=== PATIENT | male | born 1940 | race Caucasian/White ===

== ENCOUNTER 2018-07-10 09:15 | Inpatient (IN) | payer MEDICARE, OTHER ==
[2018-07-11] MEDS ORDERED: Magnesium Hydroxide 400 MG/5 ML Susp 30 ML Cup PO PRN (11:50)
[2018-07-11] MEDS ORDERED: Albuterol/Ipratropium 3.0-0.5 MG/3 ML Neb Soln NEB PRN (11:50)
[2018-07-11] MEDS ORDERED: Acetaminophen 325 MG Tab PO PRN (11:50)
[2018-07-11] MEDS: Albuterol/Ipratropium 3.0-0.5 MG/3 ML Neb Soln NEB SCH ×2 (14:53→22:12)
[2018-07-11] MEDS: Furosemide 20 MG Tab PO SCH (16:25)
[2018-07-11] MEDS: Melatonin 3 MG Tab PO SCH (20:11)
[2018-07-11] MEDS: Carvedilol 25 MG Tab PO SCH (20:12)
[2018-07-11] MEDS: Simvastatin 10 MG Tab PO SCH (20:12)
[2018-07-11] MEDS: Warfarin 2.5 MG Tab PO SCH (20:12)
[2018-07-11] MEDS: Insulin Glargine,Human Rec. Analog 100 Units/ML 3 ML Pen SUBCUT SCH (20:12)
[2018-07-11] MEDS: Fluticasone Propionate Nasal Spray 16 GM Bottle NASBOTH SCH (20:13)
[2018-07-12] MEDS: Albuterol/Ipratropium 3.0-0.5 MG/3 ML Neb Soln NEB SCH ×3 (06:00→22:12)
[2018-07-12] MEDS: Levothyroxine 50 MCG Tab PO SCH (06:01)
[2018-07-12] MEDS: Carvedilol 25 MG Tab PO SCH ×2 (09:38→19:38)
[2018-07-12] MEDS: PARoxetine 20 MG Tab PO SCH (09:38)
[2018-07-12] MEDS: Furosemide 20 MG Tab PO SCH ×2 (09:39→15:14)
[2018-07-12] MEDS: Levofloxacin 500 MG Tab PO SCH (09:39)
[2018-07-12] MEDS: Digoxin 250 MCG Tab PO SCH (09:39)
[2018-07-12] MEDS: Fluticasone Propionate Nasal Spray 16 GM Bottle NASBOTH SCH ×2 (09:39→19:40)
[2018-07-12] MEDS: Warfarin 2.5 MG Tab PO SCH (19:38)
[2018-07-12] MEDS: Melatonin 3 MG Tab PO SCH (19:39)
[2018-07-12] MEDS: Simvastatin 10 MG Tab PO SCH (19:39)
[2018-07-12] MEDS: Insulin Glargine,Human Rec. Analog 100 Units/ML 3 ML Pen SUBCUT SCH (19:39)
[2018-07-13] MEDS: Levothyroxine 50 MCG Tab PO SCH (06:08)
[2018-07-13] MEDS: Albuterol/Ipratropium 3.0-0.5 MG/3 ML Neb Soln NEB SCH ×3 (06:08→22:35)
[2018-07-13] MEDS: Carvedilol 25 MG Tab PO SCH ×2 (07:28→19:33)
[2018-07-13] MEDS: Fluticasone Propionate Nasal Spray 16 GM Bottle NASBOTH SCH ×2 (07:28→19:35)
[2018-07-13] MEDS: Furosemide 20 MG Tab PO SCH ×2 (07:28→15:04)
[2018-07-13] MEDS: Digoxin 250 MCG Tab PO SCH (07:28)
[2018-07-13] MEDS: PARoxetine 20 MG Tab PO SCH (07:28)
[2018-07-13] MEDS: Levofloxacin 500 MG Tab PO SCH (10:31)
[2018-07-13] MEDS: Warfarin 2.5 MG Tab PO SCH (19:34)
[2018-07-13] MEDS: Melatonin 3 MG Tab PO SCH (19:34)
[2018-07-13] MEDS: Simvastatin 10 MG Tab PO SCH (19:34)
[2018-07-13] MEDS: Insulin Glargine,Human Rec. Analog 100 Units/ML 3 ML Pen SUBCUT SCH (19:35)
[2018-07-14] MEDS: Levothyroxine 50 MCG Tab PO SCH (06:15)
[2018-07-14 07:00] LABS: ANION GAP 10.8 mmol/L (10-20)
[2018-07-14] MEDS: Albuterol/Ipratropium 3.0-0.5 MG/3 ML Neb Soln NEB SCH ×3 (07:15→23:38)
[2018-07-14] MEDS: Digoxin 250 MCG Tab PO SCH (09:09)
[2018-07-14] MEDS: Levofloxacin 500 MG Tab PO SCH (09:09)
[2018-07-14] MEDS: PARoxetine 20 MG Tab PO SCH (09:09)
[2018-07-14] MEDS: Carvedilol 25 MG Tab PO SCH ×2 (09:10→20:55)
[2018-07-14] MEDS: Furosemide 20 MG Tab PO SCH ×2 (09:10→17:14)
[2018-07-14] MEDS: Fluticasone Propionate Nasal Spray 16 GM Bottle NASBOTH SCH ×2 (09:10→20:53)
[2018-07-14] MEDS ORDERED: Albuterol/Ipratropium 3.0-0.5 MG/3 ML Neb Soln NEB PRN (17:40)
[2018-07-14] MEDS: Insulin Glargine,Human Rec. Analog 100 Units/ML 3 ML Pen SUBCUT SCH (20:54)
[2018-07-14] MEDS: Melatonin 3 MG Tab PO SCH (20:55)
[2018-07-14] MEDS: Simvastatin 10 MG Tab PO SCH (20:56)
[2018-07-14] MEDS: Warfarin 2.5 MG Tab PO SCH (20:56)
[2018-07-15] MEDS: Levothyroxine 50 MCG Tab PO SCH (06:00)
[2018-07-15] MEDS: Albuterol/Ipratropium 3.0-0.5 MG/3 ML Neb Soln NEB SCH (07:08)
[2018-07-15] MEDS: Carvedilol 25 MG Tab PO SCH (08:03)
[2018-07-15] MEDS: PARoxetine 20 MG Tab PO SCH (08:04)
[2018-07-15] MEDS: Digoxin 250 MCG Tab PO SCH (08:04)
[2018-07-15] MEDS: Furosemide 20 MG Tab PO SCH (08:04)
[2018-07-15] MEDS: Fluticasone Propionate Nasal Spray 16 GM Bottle NASBOTH SCH (08:04)
[2018-07-15] MEDS ORDERED: Calcium Carbonate 750 MG Tab.Chew PO PRN (08:48)
[2018-07-15] MEDS: Levofloxacin 500 MG Tab PO SCH (09:14)
--- NOTE | 2018-07-16 03:27 | DISCH ---
SWING BED DISCHARGE PRIMARY DISCHARGE DIAGNOSES: 1. Recurrent pneumonia with a chronic obstructive pulmonary disease exacerbation. 2. Escherichia coli urinary tract infection complicated due to neurogenic bladder. 3. Acute on chronic renal failure, improved with IV fluids. His creatinine was 1.6 on discharge, which is near his baseline. 4. Chronic anemia. Hemoglobin 9.8 on discharge. 5. [id number] myocardial infarction, on medical management on his admission. 6. Fall with small hematoma on the left flank area, not expanding during his stay. 7. Chronic diastolic heart failure, improved with restarting Lasix. 8. Essential hypertension. Blood pressures are under good control. Losartan remains on hold. 9. Sleep apnea, on CPAP. 10.Neurogenic bladder. 11.Mild thrombocytopenia. His platelets were actually normalized on discharge. REASON FOR ADMISSION: On the date of admission, this 78-year-old male who previously had a prolonged hospital stay for bilateral pneumonia and then swing bed had been discharged home. He returned to the clinic. He was having some chest discomfort, some cough, trouble breathing like he was before. He was getting weak. He fell at home. He had a troponin up to 0.6. It improved down to 0.056. He was monitored with telemetry. He had a paced rhythm. Otherwise, he was given some IV fluid resuscitation initially and creatinine which was over 2 did come down. His Lasix was restarted and he started oxygenating better. He was weaned off oxygen. He was on scheduled nebulizers and he previously had not used them at home, so he was discharged with recommendations to use nebulizers. He is up working with therapies and felt to be stable for discharge. DISCHARGE PLANS AND INSTRUCTIONS: The patient is going home with Home Health. He will follow up with Dr. Schrader in the clinic in 7-14 days' time. He will have a followup lab work, BMP, CBC, and INR on that same date. He did have a discharging INR today of 2.1. He will continue with his home dose, which is 2.5 daily and 5 mg on Mondays and Fridays. He otherwise is not on any aspirin due to him being on Coumadin and he already takes a beta-mary anne of Coreg and is on a statin for heart medications. He was not having any chest pain, and I did not elect to discharge him on nitro as he has not had any further chest pain. Losartan will still be on hold. Lasix will be 20 mg twice daily. He will continue his CPAP at home. He will take Levaquin for 1 more dose tomorrow. Otherwise, addendum to Home Health. He was seen [id number] on 07/15/2018. Primary need for Home Health is teaching of new medications including inhalers and a new [id number] WA and monitoring for signs and symptoms of heart failure. Due to his lung problems, he requires taxing effort to leave his home. He otherwise would benefit from some PT for mobility and home safety. I will periodically review this plan of care. PHYSICAL EXAMINATION: Vital Signs: His discharging vitals include a temperature 99, his weight 86.1 kg, pulse 70, blood pressure 134/64, respiratory rate 18, O2 of 95% on room air. General: He is in no acute distress. Heart: Regular rate and rhythm. Lungs: Sounds are clear to auscultation bilaterally without crackles or wheezes. Abdomen: Has positive bowel sounds. Soft, nontender. Extremities: Warm and dry. No edema. Mental status: Alert and orientated x3. MKA: 07/15/2018 17:40:46 MODL: 07/16/2018 03:20:55 /[id number]
== END 2018-07-15 13:00 | disposition home health service (06) | DRG 193 ==
LOC: VM.MS 07-11 11:13
PROVIDERS: ADMIT Internal Medicine; ATTEND Internal Medicine
DX: J18.9 Pneumonia, unspecified organism (principal); I21.4 Non-ST elevation (NSTEMI) myocardial infarction; N39.0 Urinary tract infection, site not specified; I13.0 Hypertensive heart and chronic kidney disease with heart failure and stage 1 through stage 4 chronic kidney disease, or unspecified chronic kidney disease; I50.32 Chronic diastolic (congestive) heart failure; J44.0 Chronic obstructive pulmonary disease with (acute) lower respiratory infection; J44.1 Chronic obstructive pulmonary disease with (acute) exacerbation; B96.20 Unspecified Escherichia coli [E. coli] as the cause of diseases classified elsewhere; N18.9 Chronic kidney disease, unspecified; D63.8 Anemia in other chronic diseases classified elsewhere; S30.1XXA Contusion of abdominal wall, initial encounter; W19.XXXA Unspecified fall, initial encounter; G47.30 Sleep apnea, unspecified; N31.9 Neuromuscular dysfunction of bladder, unspecified; I25.10 Atherosclerotic heart disease of native coronary artery without angina pectoris; D69.6 Thrombocytopenia, unspecified; Z87.01 Personal history of pneumonia (recurrent); Z79.01 Long term (current) use of anticoagulants; Z79.899 Other long term (current) drug therapy
CPT/HCPCS: 36415; 80048; 82962; 85025; 85610; 94640; 97110-GP; 97116-GP; 97165-GO; 97530-GP; A9270-GY; J7620-GY

== ENCOUNTER 2019-04-04 15:50 | Inpatient (IN) | payer MEDICARE, OTHER ==
[2019-04-04] MEDS ORDERED: Sodium Chloride 0.9% 10 ML Syringe FLUSH PRN (16:03)
[2019-04-04] MEDS ORDERED: cefTRIAXone 1 GM Vial IVPUSH ONE (16:03)
[2019-04-04] MEDS ORDERED: Albuterol/Ipratropium 3.0-0.5 MG/3 ML Neb Soln NEB ONE (16:06)
[2019-04-04] MEDS ORDERED: Sodium Chloride 0.9% 1,000 ML IV ONE (16:09)
--- NOTE | 2019-04-04 16:13 | EDM.PDOC ---
ED HPI GENERAL MEDICAL PROBLEM - General Chief Complaint: General Stated Complaint: shortness of breath Time Seen by Provider: 04/04/19 15:55 Source of Information: Reports: Patient History Limitations: Reports: Respiratory Distress - History of Present Illness INITIAL COMMENTS - FREE TEXT/NARRATIVE: Patient comes into the emergency department with complaint of shortness of breath, cough, and fever. Patient states his symptoms started approximately 3-4 days ago with generalized body aches, cough, and fever. Over the course of the last 3 days he has also noticed an increase in shortness of breath. He denies having issue with his respiratory system prior to this and is not on home O2. He was unable to catch his breath at home today and was extremely weak. His friend brought him to the emergency department for further evaluation of the above concerns. Prior to this the patient states he's been well. He denies any chest pain, dizziness, lightheadedness, nausea, vomiting, or lower extremity edema. Patient states it is difficult to take a deep breath without coughing. Patient denies taking any medications prior to arrival related to his illness. Patient denies any interventions making his symptoms less severe or any interventions that make his symptoms more severe. Onset: Gradual Location: Reports: Generalized Quality: Reports: Dull Severity: Moderate Improves with: Reports: None Worsens with: Reports: None Associated Symptoms: Reports: cough w sputum (blood tinge noted in sputum ), Diaphoresis, Fever/Chills, Loss of Appetite, Malaise, Shortness of Breath - Related Data Allergies Allergy/AdvReac Type Severity Reaction Status Date / Time No Known Allergies Allergy Verified 04/04/19 17:02 Home Meds: Home Meds Carvedilol [Coreg] 25 mg PO BID 07/29/13 [History] Digoxin 0.25 mg PO DAILY 07/29/13 [History] Levothyroxine [Synthroid] 50 mcg PO DAILY 07/29/13 [History] [place]-3 Fatty Acids [[place]-3] 1,000 mg PO BID 07/29/13 [History] PARoxetine [Paxil] 20 mg PO DAILY 07/29/13 [History] Simvastatin [Zocor] 5 mg PO BEDTIME 07/29/13 [History] Fluticasone Propionate [Flonase] 2 sprays NASBOTH BID 06/05/18 [History] Melatonin 6 mg PO BEDTIME 06/05/18 [History] Albuterol/Ipratropium [DuoNeb 3.0-0.5 MG/3 ML] 3 ml NEB Q4HRRT PRN #30 neb 06/17 [Rx] Insulin Glarg,Human.Rec.Analog [Lantus Solostar] 5 units SUBCUT BEDTIME #1 pen 06/17/18 [Rx] Acetaminophen [Tylenol] 650 mg PO Q6H PRN 07/10/18 [History] Sennosides/Docusate Sodium [Senna Plus Tablet] 1 tab PO BID 07/10/18 [History] Albuterol/Ipratropium [DuoNeb 3.0-0.5 MG/3 ML] 3 ml NEB QIDACANDBED PRN #30 neb 07/15/18 [Rx] Furosemide [Lasix] 20 mg PO BIDDIURETIC #60 tablet 07/15/18 [Rx] Warfarin [Coumadin] 2.5 mg PO BEDTIME #0 07/15/18 [Rx] levoFLOXacin [Levaquin] 500 mg PO DAILY@1000 #1 tablet 07/15/18 [Rx] Past Medical History HEENT History: Reports: Allergic Rhinitis Cardiovascular History: Reports: Afib, CAD, Heart Failure, High Cholesterol, Hypertension Respiratory History: Reports: Sleep Apnea, SOB Gastrointestinal History: Reports: GERD, Other (See Below) Other Gastrointestinal History: inguinal hernia Genitourinary History: Reports: Diabetic Nephropathy, Neurogenic Bladder, Other (See Below) Other Genitourinary History: Urethral stricture Musculoskeletal History: Reports: Back Pain, Chronic, Osteoarthritis Other Musculoskeletal History: DJD. Lumbar degenerative disc disease. HX of polio. Right knee pain States R knee buckled Psychiatric History: Reports: Depression Endocrine/Metabolic History: Reports: Diabetes, Type II, Hypothyroidism, Obesity /BMI 30+ Hematologic History: Reports: Blood Transfusion(s) Oncologic (Cancer) History: Reports: None - Past Surgical History Cardiovascular Surgical History: Reports: Pacer Musculoskeletal Surgical History: Reports: Knee Replacement Social & Family History - Family History Family Medical History: Noncontributory Cardiac: Reports: RI Endocrine/Metabolic: Reports: Diabetes, type II - Caffeine Use Caffeine Use: Reports: Coffee - Living Situation & Occupation Living situation: Reports: , Alone 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 Constitutional: Reports: Fever, Chills, Malaise, Weakness, Fatigue, Diaphoresis , Decreased Appetite HEENT: Denies: Ear Discharge, Ear Pain, Rhinitis Respiratory: Reports: Shortness of Breath, Wheezing, Cough, Sputum Cardiovascular: Reports: Dyspnea on Exertion, Other (paced rhythm ) Endocrine: Reports: No Symptoms GI/Abdominal: Reports: No Symptoms : Reports: No Symptoms Musculoskeletal: Reports: No Symptoms Skin: Reports: No Symptoms Neurological: Reports: No Symptoms Psychiatric: Reports: No Symptoms Hematologic/Lymphatic: Reports: No Symptoms ED EXAM, GENERAL - Physical Exam Exam: See Below Exam Limited By: No Limitations General Appearance: Moderate Distress Respiratory/Chest: Decreased Breath Sounds, Crackles, Wheezing, Stridor, Accessory Muscle Use Cardiovascular: Normal Peripheral Pulses, No Gallop, Other (paced rhythm ). No : No Edema GI/Abdominal: Normal Bowel Sounds, Soft, Non-Tender, No Distention Back Exam: Normal Inspection, Full Range of Motion Extremities: Normal Inspection, Normal Range of Motion, Non-Tender, No Pedal Edema, Normal Capillary Refill Neurological: Alert, Oriented Psychiatric: Normal Affect, Normal Mood Skin Exam: Intact, Increased Warmth, Pallor Course - Vital Signs Last Recorded V/S: Last Vital Signs Temp 38.9 C H 04/04/19 16:50 Pulse 70 04/04/19 16:14 Resp 40 H 04/04/19 15:57 BP 175/79 H 04/04/19 15:57 Pulse Ox 90 L 04/04/19 16:14 - Orders/Labs/Meds Orders: Active Orders 24 hr Category Date Time Status Admission Status [Patient Status] [ADT] Routine ADT 04/04/19 17:17 Ordered EKG Documentation Completion [RC] STAT Care 04/04/19 16:03 Active RT Aerosol Therapy [RC] ASDIRECTED Care 04/04/19 16:06 Active CULTURE BLOOD [BC] Stat Lab 04/04/19 16:28 Results CULTURE BLOOD [BC] Stat Lab 04/04/19 16:35 Received Sodium Chloride 0.9% [Normal Saline] 1,000 ml Med 04/04/19 16:09 Active IV ONETIME Sodium Chloride 0.9% [Saline Flush] Med 04/04/19 16:03 Active 10 ml FLUSH ASDIRECTED PRN Blood Culture x2 Reflex Set [OM.PC] Stat Oth 04/04/19 16:03 Ordered Peripheral IV Insertion Adult [OM.PC] Stat Oth 04/04/19 16:03 Ordered Medication Orders Sodium Chloride (Normal Saline) 1,000 mls @ 150 mls/hr IV ONETIME ONE Stop: 04/04/19 22:48 Last Admin: 04/04/19 16:32 Dose: 150 mls/hr Sodium Chloride (Saline Flush) 10 ml FLUSH ASDIRECTED PRN PRN Reason: Keep Vein Open Labs: Laboratory Tests 04/04/19 04/04/19 04/04/19 Range/Units 16:28 16:28 16:28 WBC 5.1 (4.0-10.0) x10^3/uL RBC 3.83 L (4.5-6.0) x10^6/uL Hgb 11.8 L D (14.0-18.0) g/dL Hct 37.1 L (40.0-52.0) % MCV 96.9 H (78.0-93.0) fL MCH 30.8 (26.0-32.0) pg MCHC 31.8 L (32.0-36.0) g/dL RDW Coeff of Mart 14.4 (10.0-15.0) % Plt Count 82 L D (130-400) x10^3/uL Neut % (Auto) 49.5 L (50.0-80.0) % Lymph % (Auto) 17.6 L (25.0-50.0) % [place] % (Auto) 30.5 H (2.0-11.0) % Eos % (Auto) 1.2 (0.0-4.0) % Baso % (Auto) 1.2 (0.2-1.2) % PT (10.0-12.8) SEC INR (2.0-3.5) Sodium 138 (69-191) mmol/L Potassium 4.4 (1.5-9.9) mmol/L Chloride 101 (54-184) mmol/L Carbon Dioxide 28 (21-32) mmol/L Anion Gap 13.4 (10-20) mmol/L BUN 22 H (7-18) mg/dL Creatinine 1.9 H (0.70-1.30) mg/dL Est Cr Clr Drug Dosing 28.45 mL/min Estimated GFR (MDRD) 34 Glucose 134 H (74-106) mg/dL Lactic Acid 1.1 (0.4-2.0) mmol/L Calcium 8.4 L (8.5-10.1) mg/dL Corrected Calcium 8.96 (8.5-10.1) mg/dL Total Bilirubin 1.0 (0.2-1.0) mg/dL AST 21 (15-37) U/L ALT 17 (16-63) U/L Alkaline Phosphatase 82 (46-116) U/L NT-Pro-B Natriuret Pep 4423 H (<=450) pg/mL Total Protein 7.5 (6.4-8.2) g/dL Albumin 3.3 L (3.4-5.0) g/dL Globulin 4.2 Albumin/Globulin Ratio 0.79 09/28/19 Range/Units 16:28 WBC (4.0-10.0) x10^3/uL RBC (4.5-6.0) x10^6/uL Hgb (14.0-18.0) g/dL Hct (40.0-52.0) % MCV (78.0-93.0) fL MCH (26.0-32.0) pg MCHC (32.0-36.0) g/dL RDW Coeff of Mart (10.0-15.0) % Plt Count (130-400) x10^3/uL Neut % (Auto) (50.0-80.0) % Lymph % (Auto) (25.0-50.0) % [place] % (Auto) (2.0-11.0) % Eos % (Auto) (0.0-4.0) % Baso % (Auto) (0.2-1.2) % PT 21.4 H (10.0-12.8) SEC INR 1.9 L (2.0-3.5) Sodium (69-191) mmol/L Potassium (1.5-9.9) mmol/L Chloride (54-184) mmol/L Carbon Dioxide (21-32) mmol/L Anion Gap (10-20) mmol/L BUN (7-18) mg/dL Creatinine (0.70-1.30) mg/dL Est Cr Clr Drug Dosing mL/min Estimated GFR (MDRD) Glucose (74-106) mg/dL Lactic Acid (0.4-2.0) mmol/L Calcium (8.5-10.1) mg/dL Corrected Calcium (8.5-10.1) mg/dL Total Bilirubin (0.2-1.0) mg/dL AST (15-37) U/L ALT (16-63) U/L Alkaline Phosphatase (46-116) U/L NT-Pro-B Natriuret Pep (<=450) pg/mL Total Protein (6.4-8.2) g/dL Albumin (3.4-5.0) g/dL Globulin Albumin/Globulin Ratio Meds: Medications Generic Name Dose Route Start Last Admin Trade Name Freq PRN Reason Stop Dose Admin Sodium Chloride 1,000 mls @ 150 mls/hr 04/04/19 16:09 04/04/19 16:32 Normal Saline IV 04/04/19 22:48 150 mls/hr ONETIME ONE Administration Sodium Chloride 10 ml 04/04/19 16:03 Saline Flush FLUSH ASDIRECTED PRN Keep Vein Open Discontinued Medications Generic Name Dose Route Start Last Admin Trade Name Freq PRN Reason Stop Dose Admin Acetaminophen 1,000 mg 04/04/19 16:40 04/04/19 16:50 Tylenol PO 04/04/19 16:41 Not Given NOW ONE Acetaminophen 1,000 mg 04/04/19 16:46 04/04/19 16:50 Tylenol Extra Strength PO 04/04/19 16:47 1,000 mg ONETIME ONE Administration Albuterol/Ipratropium 3 ml 04/04/19 16:06 04/04/19 16:14 Duoneb 3.0-0.5 Mg/3 Ml NEB 04/04/19 16:07 3 ml ONETIME ONE Administration Ceftriaxone Sodium 1 gm 04/04/19 16:03 04/04/19 16:28 Rocephin IVPUSH 04/04/19 16:04 1 gm ONETIME ONE Administration Furosemide 40 mg 04/04/19 17:15 Lasix IV 04/04/19 17:16 ONETIME ONE Departure - Departure Time of Disposition: 17:20 Disposition: Admitted As Inpatient 65 Clinical Impression: CHF (congestive heart failure) Qualifiers: Heart failure type: diastolic Heart failure chronicity: acute Qualified Code(s) : I50.31 - Acute diastolic (congestive) heart failure Fever Qualifiers: Fever type: unspecified Qualified Code(s): R50.9 - Fever, unspecified Respiratory failure Qualifiers: Chronicity: acute Respiratory failure complication: hypoxia and hypercapnia Qualified Code(s): J96.01 - Acute respiratory failure with hypoxia; J96.02 - Acute respiratory failure with hypercapnia Fluid overload Qualifiers: Hypervolemia type: unspecified Qualified Code(s): E87.70 - Fluid overload, unspecified - Discharge Information *PRESCRIPTION DRUG MONITORING PROGRAM REVIEWED*: Not Applicable *COPY OF PRESCRIPTION DRUG MONITORING REPORT IN PATIENT MARTY: Not Applicable Forms: ED Department Discharge - Problem List & Annotations (1) Acute diastolic heart failure SNOMED Code(s): 388354018 Code(s): I50.31 - ACUTE DIASTOLIC (CONGESTIVE) HEART FAILURE Status: Chronic Current Visit: No (2) CHF (congestive heart failure) SNOMED Code(s): 02837638 Code(s): I50.9 - HEART FAILURE, UNSPECIFIED Status: Chronic Priority: Medium Current Visit: Yes Qualifiers: Heart failure type: diastolic Heart failure chronicity: acute Qualified Code(s): I50.31 - Acute diastolic (congestive) heart failure (3) Fever SNOMED Code(s): 019714722 Code(s): R50.9 - FEVER, UNSPECIFIED Status: Acute Current Visit: Yes Qualifiers: Fever type: unspecified Qualified Code(s): R50.9 - Fever, unspecified (4) Fluid overload SNOMED Code(s): 50782396 Code(s): E87.70 - FLUID OVERLOAD, UNSPECIFIED Status: Acute Current Visit : Yes Qualifiers: Hypervolemia type: unspecified Qualified Code(s): E87.70 - Fluid overload, unspecified (5) Respiratory failure SNOMED Code(s): 615754219 Code(s): J96.90 - RESPIRATORY FAILURE, UNSP, UNSP W HYPOXIA OR HYPERCAPNIA Status: Acute Current Visit: Yes Qualifiers: Chronicity: acute Respiratory failure complication: hypoxia and hypercapnia Qualified Code(s): J96.01 - Acute respiratory failure with hypoxia ; J96.02 - Acute respiratory failure with hypercapnia - Problem List Review Problem List Initiated/Reviewed/Updated: Yes - My Orders Last 24 Hours: My Active Orders 04/04/19 16:03 EKG Documentation Completion [RC] STAT Sodium Chloride 0.9% [Saline Flush] 10 ml FLUSH ASDIRECTED PRN Blood Culture x2 Reflex Set [OM.PC] Stat Peripheral IV Insertion Adult [OM.PC] Stat 04/04/19 16:06 RT Aerosol Therapy [RC] ASDIRECTED 04/04/19 16:09 Sodium Chloride 0.9% [Normal Saline] 1,000 ml IV ONETIME 04/04/19 16:28 CULTURE BLOOD [BC] Stat 04/04/19 16:35 CULTURE BLOOD [BC] Stat 04/04/19 17:17 Admission Status [Patient Status] [ADT] Routine - Assessment/Plan Last 24 Hours: My Active Orders 04/04/19 16:03 EKG Documentation Completion [RC] STAT Sodium Chloride 0.9% [Saline Flush] 10 ml FLUSH ASDIRECTED PRN Blood Culture x2 Reflex Set [OM.PC] Stat Peripheral IV Insertion Adult [OM.PC] Stat 04/04/19 16:06 RT Aerosol Therapy [RC] ASDIRECTED 04/04/19 16:09 Sodium Chloride 0.9% [Normal Saline] 1,000 ml IV ONETIME 04/04/19 16:28 CULTURE BLOOD [BC] Stat 04/04/19 16:35 CULTURE BLOOD [BC] Stat 04/04/19 17:17 Admission Status [Patient Status] [ADT] Routine Assessment:: 1. SOB 2. Respiratory Failure requiring 4 L NC 3. Cough/body ache 4. Fever 5. CHF exacerbation Plan: 1. IV initiated and IV fluids provided at a controlled rate in the ER 2. Sepsis protocol initiated upon patient's arrival due resp rate and fever 3. Labs completed in the ER. Results reviewed with patient 4. EKG completed in ER. Results reviewed with the Patient 5. Blood cultures obtained in the emergency department 6. Rocephin 1 g IV given after blood cultures obtained 7. DuoNeb given in the ER. Pt noted relief after administration. 8. Patient placed on Oxygen due to low saturations 80's upon arrival 5L NC. After duo neb O2 saturations 92% 4 L NC. 9. Tylenol 1000mg given in ER for fever and body aches. Pt felt relief prior to admission after medication given 10. Dr. Pineda contacted regarding acute care admission for Dr. Alexsandra Schrader. Patient will be admitted acute care for CHF exacerbation, Fever, and respiratory failure requiring Oxygen. 11. All questions and concerns addressed prior to the pt being admitted.
[2019-04-04] MEDS ORDERED: Acetaminophen 325 MG Tab PO ONE (16:40)
[2019-04-04] MEDS ORDERED: Acetaminophen 500 MG Tab PO ONE (16:46)
--- NOTE | 2019-04-04 16:55 | CR ---
[id number] RAD/RAD Chest PA or AP 1V EXAM: RAD Chest PA or AP 1V INDICATION: COUGH. COMPARISON: July 09, 2018. DISCUSSION: Cardiomegaly and central vascular congestion. Right chest wall cardiac conduction device. Spinal similar device projects over the thorax. No acute pulmonary findings. IMPRESSION: No acute findings in the chest. Other findings are described above. Elder De Leon MD 04/04/19 4521 Thank you for allowing us to participate in the care of your patient.
[2019-04-04 17:14] LABS: ANION GAP 13.4 mmol/L (10-20)
[2019-04-04] MEDS ORDERED: Furosemide 40 MG/4 ML VIAL IV ONE (17:15)
[2019-04-04] MEDS ORDERED: cefTRIAXone 1 GM Vial IVPUSH SCH (19:00)
[2019-04-04] MEDS: Albuterol/Ipratropium 3.0-0.5 MG/3 ML Neb Soln NEB SCH (19:45)
[2019-04-04] MEDS: Furosemide 20 MG/2 ML VIAL IV SCH (19:50)
[2019-04-04] MEDS: Doxycycline 100 MG Cap PO SCH (19:53)
[2019-04-04] MEDS ORDERED: Insulin Glargine,Human Rec. Analog 100 Units/ML 3 ML Pen SUBCUT SCH (20:00)
[2019-04-04] MEDS ORDERED: Simvastatin 10 MG Tab PO SCH (20:00)
--- NOTE | 2019-04-04 20:04 | CT ---
[id number] CT/CT Head WO IV EXAM: CT Head WO IV CLINICAL DATA: FALL HEADACHES ON WARFARIN COMPARISON STUDY: None FINDINGS: No intracranial hemorrhage, extra-axial fluid collection, mass, or acute ischemia. Mild/moderate changes of chronic small vessel disease throughout the brain. Paranasal sinuses and mastoid air cells are clear. IMPRESSION: No acute intracranial findings. Elder De Leon MD 04/04/192002 Thank you for allowing us to participate in the care of your patient.
[2019-04-05] MEDS: Albuterol/Ipratropium 3.0-0.5 MG/3 ML Neb Soln NEB SCH ×4 (01:18→12:16)
[2019-04-05] MEDS: Furosemide 20 MG/2 ML VIAL IV SCH (05:36)
[2019-04-05] MEDS: Levothyroxine 50 MCG Tab PO SCH ×2 (05:38→06:09)
[2019-04-05] MEDS: Doxycycline 100 MG Cap PO SCH (07:55)
[2019-04-05] MEDS ORDERED: Digoxin 250 MCG Tab PO SCH (08:00)
[2019-04-05] MEDS ORDERED: PARoxetine 20 MG Tab PO SCH (08:00)
[2019-04-05] MEDS ORDERED: Phytonadione 100 MCG Tab PO SCH (08:00)
[2019-04-05] MEDS ORDERED: Carvedilol 25 MG Tab PO SCH (08:00)
[2019-04-05] MEDS ORDERED: Acetaminophen 325 MG Tab PO PRN (08:01)
[2019-04-05 08:51] LABS: ANION GAP 14.2 mmol/L (10-20)
[2019-04-05] MEDS ORDERED: Warfarin 2.5 MG Tab PO ONE ×2 (09:55→12:15)
--- NOTE | 2019-04-05 10:03 | PCM.SN ---
- Free Text/Narrative Note: S; Pt states he feels a little better but unclear how. States SOB, Coughing, weakness is all the same. He reports cathing himself only once although nurse's notes indicate at least one cath during the night.Pt not sure if nebs help breathing. Nurses report he tolerated bath w/o increased SOB but pt is very weak , requiring 2 to transfer 0: Ask was 101 this morning, blood pressure 147/74, heart rate 71, O2 sats 89-91 % on 2 L, weight 203 on bed scale Patient awake and alert but he is a day and needs to be asked questions more than once, this may be a hearing problem Lungs: Scattered wheezes in the lower half lung and decreased breath sounds at bases Cor: S1-S2 normal without rubs, murmurs, gallops Extremities: No edema Moving all extremities equally Lab: CT scan yesterday was negative for any intracranial bleeding, there is microvascular disease Troponin which was mildly elevated yesterday is normal today at 0.049 INR 1.7 Potassium 4.0 Creatinine 2.1 with BUN 25 " TSH 1.75 Medications: Acetaminophen when necessary temp greater than 101, mini nebs every 6, Coreg 25 twice a day, Rocephin 1 g every 24, digoxin 0.25 daily, doxycycline 100 twice a day, Lasix 20 mg twice a day IV, glargine insulin 5 units daily, L-thyroxine 0.050 daily, Paxil 20 mg daily, Zocor 5 mg daily, vitamin K 100 mg daily. (Reviewing chart indicates that the warfarin was not reordered inadvertently) Impression 1. Congestive heart failure: Weight has gone up from 196-200. Increase Lasix from 20 twice a day to 40 twice a day IV 2. Atrial fibrillation: Rate appears to be controlled, in view of weakness will check dig level. As INR is subtherapeutic we'll give 7.5 mg a day and then starting tomorrow resume usual dose of 5 mg 4 times a week and 2.5mg 3 times a week 3. Pneumonia: Presumably this is source of his fever with coughing. He has COPD and I think this is delaying his recovery, we'll start chest PT continue with nebs, Rocephin and doxycycline 4. Neurogenic bladder: A urine specimen will be checked to be sure he doesn't have a symptomatic UTI as well 5. Elevated troponin it's unclear if he may have had a subendocardial KS sometime over the last week. Patient would benefit from repeat echo. Continue with simvastatin 6. Weakness: Physical therapy consult will be started 7. Tremor: His primary care physician can adjust possible starting of an antiparkinson's medication
--- NOTE | 2019-04-05 10:34 | PCM.HP.2 ---
H&P History of Present Illness - General Date of Service: 04/04/19 Admit Problem/Dx: Admission Diagnosis/Problem Admission Diagnosis/Problem Congestive heart failure Source of Information: Patient, Old Records History Limitations: Reports: No Limitations - History of Present Illness Initial Comments - Free Text/Narative: History of present illness: Patient is an 79-year-old male who lives by himself. He generally gets uses a walker to get around as he has leg weakness and polio in pain in his knees from osteoarthritis. Patient about a week ago started having fevers, productive cough with hemoptysis and increased shortness of breath. He came to the hospital today because his brother told him to come. He also fell 2 days prior before coming to the hospital because of his weakness and he has been having some headaches since then. He denied any loss of consciousness or head trauma. In the emergency room patient presented with a fever of 102, dyspnea. This resolved with O2 4 L and treatment. Marginal portable Chest x-ray showed cardiomegaly, with central venous congestion. In view of his symptoms of cough with hemoptysis, fever he was strongly suspected that he also had pneumonia Patient had a similar episode in May 2018 with hemoptysis and fever he was transferred to [facility] where he is treated for left lower lobe pneumonia. Patient stated he had a heart attack at that time that I don't see any documentations of troponin. Past surgical history lateral hernia repair with mesh, pacemaker implantation, spinal stimulator, cardiac ablation for atrial fibrillation, right knee replacement, Past medical history: Lumbar disc disease, osteoarthritis knees, atrial fibrillation with sick sinus, reported CAD, chronic kidney disease, COPD, depression, diabetes mellitus, GERD, urethral stricture with neurogenic bladder and self-catheterization, hyperlipidemia, hypertension, hypothyroidism, polio with postpolio syndrome, sleep apnea on CPAP, pulmonary hypertension, urethral stricture, depression, concentric LVH, preserved LV function and pulmonary hypertension Habits: Quit smoking many years ago but smoked heavily for 30 years Family history: Noncontributory Social history: Patient lives by himself, has no children, 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 GEN: Bleeding on the legs after his fall HEENT: Denies problems with seeing hearing swallowing a smelling Respiratory: Always a little shortness of breath for years but worse this week, he's had cough productive of slimy sputum and blood CVS: Denies chest pain chest pressure, fast or irregular heartbeat GI: Denies nausea, vomiting, diarrhea, constipation, black or red bowel movements : Patient states he self catheters 3 times a day, does this when he feels like he has to void. Patient states he voids spontaneously very he has incontinent sometimes. Muscular- skeletal. Patient states that his back and knees are feeling okay right now that he's had pain in the past which required the stimulator and also nerve block Neuro: Patient has been having some headaches on his right after his fall 2 days ago. 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 Oxygen. Questions had to be repeated sometimes and he may be hard of hearing In the emergency room temperature max was 102 respirations 40 blood pressure 175 /79 O2 sat on room air 90 pulse 70 Skin: He has seborrheic dermatitis on his head and face, multiple superficial abrasions on his legs Lymph: Nonpalpable in neck, groin or axilla HEENT: No facial asymmetry, no contusions, neck supple, normal thyroid, no carotid bruits Lungs: Few rales at the right base, no wheezes or rhonchi but this was right after a neb treatment Cor: S1, S2 normal without rubs, murmurs, gallops, rhythm fairly regular Abdomen: Soft, nontender, no enlarged liver or spleen, no tenderness or masses Extremities: No pitting edema, mild clubbing, no cyanosis Neuro: Patient awake and alert, Moving all extremities equally No facial asymmetry Patient has a mild intention tremor, no cogwheeling, face is somewhat decreased in expression, I did not attempt to walk patient Lab: Chest x-ray shows cardiomegaly and central venous congestion EKG shows 100% paced rhythm Blood cultures are pending White count 5000, hemoglobin 11.8, platelets 82,000 INR 1.9 Sodium 138, potassium 4.4, chloride 101, CO2 28, BUN 22, creatinine 1.9 , glucose 134, calcium lactic acid and LFTs all normal. Troponin 0.05 9.056 being upper limits of normal BNP 4423 Impression 1. Pneumonia: This is suggested by his fever, shortness of breath increase and cough hemoptysis. Patient will be maintained on Rocephin, start doxycycline, start mini nebs, supplemental oxygen being Careful to watch for CO2 narcosis 2. COPD: As above 3. CHF: Start diuresis with Lasix 20iv twice a day 4. Elevated troponin: This may be because of CKG A she gives no history of chest pain, will monitor however as patient had an MS last year, repeat morning 5. Atrial fibrillation: Continue with anticoagulation, dose of dig appears generous view of CK D, check dig level 6. Low platelets: Repeat in the morning 7. Anemia: Check stools for blood 8. History of fall and new onset headaches: Check CT head 9. Neurogenic bladder: This is also possible site of infection, check urine culture,, encouraged patient to catheterize more frequently 10. Intention tremor: I've informed patient I will pass this along to the PCP to sit or adding something for Parkinson's Patient wishes to be Code level I; as he was transferred to [facility] in [place] last year for similar complaints asked patient if he is comfortable staying here in [place] in [place] and he was. Patient declined to have recall any family members for update on his condition. 1 - Related Data Allergies/Adverse Reactions: Allergies Allergy/AdvReac Type Severity Reaction Status Date / Time No Known Allergies Allergy Verified 04/04/19 17:02 Home Medications: Home Meds Carvedilol [Coreg] 25 mg PO BID 07/29/13 [History] Digoxin 0.25 mg PO DAILY 07/29/13 [History] Levothyroxine [Synthroid] 50 mcg PO DAILY 07/29/13 [History] Mcfarland-3 Fatty Acids [Mcfarland-3] 1,000 mg PO BID 07/29/13 [History] PARoxetine [Paxil] 20 mg PO DAILY 07/29/13 [History] Simvastatin [Zocor] 5 mg PO BEDTIME 07/29/13 [History] Fluticasone Propionate [Flonase] 2 sprays NASBOTH BID 06/05/18 [History] Melatonin 6 mg PO BEDTIME 06/05/18 [History] Insulin Glarg,Human.Rec.Analog [Lantus Solostar] 5 units SUBCUT BEDTIME #1 pen 06/17/18 [Rx] Acetaminophen [Tylenol] 650 mg PO Q6H PRN 07/10/18 [History] Sennosides/Docusate Sodium [Senna Plus Tablet] 1 tab PO BID 07/10/18 [History] Albuterol/Ipratropium [Combivent Respimat] 1 puff IH Q4H PRN 04/04/19 [History] Albuterol/Ipratropium [DuoNeb 3.0-0.5 MG/3 ML] 3 ml NEB Q4H PRN 04/04/19 [ History] Cefadroxil [Duricef] 500 mg PO BID 04/04/19 [History] Furosemide [Lasix] 20 mg PO ASDIRECTED 04/04/19 [History] Ketoconazole [Nizoral 2% Shampoo] 5 ml TOP ASDIRECTED 04/04/19 [History] Phytonadione [Vitamin K] 100 mcg PO DAILY 04/04/19 [History] Warfarin [Coumadin] 2.5 mg PO MOWEFR 04/04/19 [History] Warfarin [Coumadin] 5 mg PO SUTUTHSA 04/04/19 [History] Past Medical History HEENT History: Reports: Allergic Rhinitis Cardiovascular History: Reports: Afib, CAD, Heart Failure, High Cholesterol, Hypertension, MS Respiratory History: Reports: Pneumonia, Recurrent, Sleep Apnea, SOB Gastrointestinal History: Reports: GERD, Other (See Below) Other Gastrointestinal History: inguinal hernia Genitourinary History: Reports: Diabetic Nephropathy, Neurogenic Bladder, Other (See Below) Other Genitourinary History: Urethral stricture. chronic kidney disease Musculoskeletal History: Reports: Back Pain, Chronic, Osteoarthritis Other Musculoskeletal History: DJD. Lumbar degenerative disc disease. HX of polio. Right knee pain States R knee buckled Psychiatric History: Reports: Depression Endocrine/Metabolic History: Reports: Diabetes, Type II, Hypothyroidism, Obesity /BMI 30+ Hematologic History: Reports: Blood Transfusion(s) Oncologic (Cancer) History: Reports: None - Past Surgical History Cardiovascular Surgical History: Reports: Pacer Musculoskeletal Surgical History: Reports: Knee Replacement Social & Family History - Family History Family Medical History: Noncontributory Cardiac: Reports: MS Endocrine/Metabolic: Reports: Diabetes, type II - Tobacco Use Smoking Status *Q: Never Smoker Used Tobacco, but Quit: Yes Month/Year Tobacco Last Used: 30 years ago Second Hand Smoke Exposure: No - Caffeine Use Caffeine Use: Reports: Coffee - Recreational Drug Use Recreational Drug Use: No - Living Situation & Occupation Living situation: Reports: , Alone 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) H&P Review of Systems - Review of Systems: Review Of Systems: See Below Exam - Exam Exam: See Below - Vital Signs Vital Signs: Last Vital Signs Temp 101.6 F H 04/05/19 10:01 Pulse 86 04/05/19 10:00 Resp 22 H 04/05/19 10:00 BP 146/86 H 04/05/19 10:00 Pulse Ox 96 04/05/19 10:00 Weight: 203 lb - Patient Data Lab Results Last 24 hrs: Laboratory Results - last 24 hr 04/04/19 04/04/19 04/04/19 Range/Units 16:28 16:28 16:28 WBC 5.1 (4.0-10.0) x10^3/uL RBC 3.83 L (4.5-6.0) x10^6/uL Hgb 11.8 L D (14.0-18.0) g/dL Hct 37.1 L (40.0-52.0) % MCV 96.9 H (78.0-93.0) fL MCH 30.8 (26.0-32.0) pg MCHC 31.8 L (32.0-36.0) g/dL RDW Coeff of Mart 14.4 (10.0-15.0) % Plt Count 82 L D (130-400) x10^3/uL Neut % (Auto) 49.5 L (50.0-80.0) % Lymph % (Auto) 17.6 L (25.0-50.0) % [place] % (Auto) 30.5 H (2.0-11.0) % Eos % (Auto) 1.2 (0.0-4.0) % Baso % (Auto) 1.2 (0.2-1.2) % PT (10.0-12.8) SEC INR (2.0-3.5) Sodium 138 (69-191) mmol/L Potassium 4.4 (1.5-9.9) mmol/L Chloride 101 (54-184) mmol/L Carbon Dioxide 28 (21-32) mmol/L Anion Gap 13.4 (10-20) mmol/L BUN 22 H (7-18) mg/dL Creatinine 1.9 H (0.70-1.30) mg/dL Est Cr Clr Drug Dosing 28.45 mL/min Estimated GFR (MDRD) 34 Glucose 134 H (74-106) mg/dL Lactic Acid 1.1 (0.4-2.0) mmol/L Calcium 8.4 L (8.5-10.1) mg/dL Corrected Calcium 8.96 (8.5-10.1) mg/dL Magnesium (1.8-2.4) mg/dL Total Bilirubin 1.0 (0.2-1.0) mg/dL AST 21 (15-37) U/L ALT 17 (16-63) U/L Alkaline Phosphatase 82 (46-116) U/L Troponin I (<=0.056) ng/mL NT-Pro-B Natriuret Pep 4423 H (<=450) pg/mL Total Protein 7.5 (6.4-8.2) g/dL Albumin 3.3 L (3.4-5.0) g/dL Globulin 4.2 Albumin/Globulin Ratio 0.79 TSH, Ultra Sensitive (0.358-3.74) uIU/mL 04/04/19 04/04/19 04/05/19 Range/Units 16:28 16:28 08:12 WBC (4.0-10.0) x10^3/uL RBC (4.5-6.0) x10^6/uL Hgb (14.0-18.0) g/dL Hct (40.0-52.0) % MCV (78.0-93.0) fL MCH (26.0-32.0) pg MCHC (32.0-36.0) g/dL RDW Coeff of Mart (10.0-15.0) % Plt Count (130-400) x10^3/uL Neut % (Auto) (50.0-80.0) % Lymph % (Auto) (25.0-50.0) % [place] % (Auto) (2.0-11.0) % Eos % (Auto) (0.0-4.0) % Baso % (Auto) (0.2-1.2) % PT 21.4 H (10.0-12.8) SEC INR 1.9 L (2.0-3.5) Sodium 140 (69-191) mmol/L Potassium 4.2 (1.5-9.9) mmol/L Chloride 100 (54-184) mmol/L Carbon Dioxide 30 (21-32) mmol/L Anion Gap 14.2 (10-20) mmol/L BUN 25 H (7-18) mg/dL Creatinine 2.1 H (0.70-1.30) mg/dL Est Cr Clr Drug Dosing 24.40 mL/min Estimated GFR (MDRD) 31 Glucose 157 H (74-106) mg/dL Lactic Acid (0.4-2.0) mmol/L Calcium 8.6 (8.5-10.1) mg/dL Corrected Calcium (8.5-10.1) mg/dL Magnesium 1.9 (1.8-2.4) mg/dL Total Bilirubin (0.2-1.0) mg/dL AST (15-37) U/L ALT (16-63) U/L Alkaline Phosphatase (46-116) U/L Troponin I 0.059 H* (<=0.056) ng/mL NT-Pro-B Natriuret Pep (<=450) pg/mL Total Protein (6.4-8.2) g/dL Albumin (3.4-5.0) g/dL Globulin Albumin/Globulin Ratio TSH, Ultra Sensitive 1.750 (0.358-3.74) uIU/mL 04/05/19 04/05/19 Range/Units 08:12 08:12 WBC (4.0-10.0) x10^3/uL RBC (4.5-6.0) x10^6/uL Hgb (14.0-18.0) g/dL Hct (40.0-52.0) % MCV (78.0-93.0) fL MCH (26.0-32.0) pg MCHC (32.0-36.0) g/dL RDW Coeff of Mart (10.0-15.0) % Plt Count (130-400) x10^3/uL Neut % (Auto) (50.0-80.0) % Lymph % (Auto) (25.0-50.0) % [place] % (Auto) (2.0-11.0) % Eos % (Auto) (0.0-4.0) % Baso % (Auto) (0.2-1.2) % PT 19.7 H (10.0-12.8) SEC INR 1.7 L (2.0-3.5) Sodium (69-191) mmol/L Potassium (1.5-9.9) mmol/L Chloride (54-184) mmol/L Carbon Dioxide (21-32) mmol/L Anion Gap (10-20) mmol/L BUN (7-18) mg/dL Creatinine (0.70-1.30) mg/dL Est Cr Clr Drug Dosing mL/min Estimated GFR (MDRD) Glucose (74-106) mg/dL Lactic Acid (0.4-2.0) mmol/L Calcium (8.5-10.1) mg/dL Corrected Calcium (8.5-10.1) mg/dL Magnesium (1.8-2.4) mg/dL Total Bilirubin (0.2-1.0) mg/dL AST (15-37) U/L ALT (16-63) U/L Alkaline Phosphatase (46-116) U/L Troponin I 0.042 (<=0.056) ng/mL NT-Pro-B Natriuret Pep (<=450) pg/mL Total Protein (6.4-8.2) g/dL Albumin (3.4-5.0) g/dL Globulin Albumin/Globulin Ratio TSH, Ultra Sensitive (0.358-3.74) uIU/mL Result Diagrams: 04/05/19 08:12 04/05/19 08:12 Ede Results Last 24 hrs: Microbiology 04/04/19 16:28 Anaerobic Blood Culture - Final Blood - Venous Problem List Initiated/Reviewed/Updated: Yes Orders Last 24hrs: Active Orders 24 hr Category Date Time Status Admission Diagnosis [ADT] Routine ADT 04/04/19 18:21 Ordered Admission Status [Patient Status] [ADT] Routine ADT 04/04/19 17:17 Active Patient Status [ADT] Routine ADT 04/04/19 18:34 Active Bedrest Bedside Commode [RC] 08,20 Care 04/04/19 18:22 Active Blood Glucose Check, Bedside [RC] 07,17 Care 04/04/19 19:05 Active CPAP Adult [RT BiPAP/CPAP] [RC] 20 Care 04/04/19 19:13 Active Dietary Supplements [RC] 10,17 Care 04/04/19 18:45 Active Fecal Occult Bld Diag Imm [RC] ASDIRECTED Care 04/04/19 19:04 Active Height and Weight [RC] 07 Care 04/04/19 18:22 Active Intake and Output [RC] 06,18 Care 04/04/19 18:36 Active May Shower [RC] 08 Care 04/04/19 18:22 Active Oxygen Therapy [RC] 08,20 Care 04/04/19 17:18 Active Pulse Oximetry [RC] 02,06,10,14,18,22 Care 04/04/19 18:37 Active RT Aerosol Therapy [RC] ASDIRECTED Care 04/04/19 16:06 Active RT Aerosol Therapy [RC] ASDIRECTED Care 04/04/19 18:51 Active Telemetry Monitoring [Cardiac Monitoring] [RC] 02,06,10 Care 04/04/19 19:06 Active ,14,18,22 Up With Assistance [RC] 08,20 Care 04/04/19 18:22 Active Up to Chair [RC] 08,20 Care 04/04/19 18:22 Active Urinary Catheter Assessment [RC] ASDIRECTED Care 04/04/19 19:29 Active Urinary Catheter Insertion [Insert Urinary Catheter] [ Care 04/04/19 19:30 Ordered OM.PC] Q24H VTE/DVT Education [RC] .PRN Care 04/04/19 18:34 Active Vital Signs [RC] 02,06,10,14,18,22 Care 04/04/19 18:34 Active Consult to Physical Therapy [PT Evaluation and Cons 04/04/19 18:39 Active Treatment] [CONS] Routine 2 Gram Sodium Diet [DIET] Diet 04/05/19 Breakfast Active BASIC METABOLIC PANEL,BMP [CHEM] Routine Lab 04/06/19 05:00 Ordered CULTURE BLOOD [BC] Stat Lab 04/04/19 16:28 Results CULTURE BLOOD [BC] Stat Lab 04/04/19 16:35 Received DIGOXIN [CHEM] Routine Lab 04/05/19 10:01 Ordered INR,PT,PROTHROMBIN TIME [COAG] DAILY Lab 04/06/19 09:22 Ordered INR,PT,PROTHROMBIN TIME [COAG] DAILY Lab 04/07/19 09:22 Ordered INR,PT,PROTHROMBIN TIME [COAG] DAILY Lab 04/08/19 09:22 Ordered UA RFX EDE AND CULT IF INDIC [URIN] Routine Lab 04/05/19 08:02 Ordered Acetaminophen [Tylenol] Med 04/05/19 08:01 Active 650 mg PO Q6H PRN Albuterol/Ipratropium [DuoNeb 3.0-0.5 MG/3 ML] Med 04/04/19 19:00 Active 3 ml NEB Q6HRRT Carvedilol [Coreg] Med 04/05/19 08:00 Active 25 mg PO BIDM Digoxin [Lanoxin] Med 04/05/19 08:00 Active 250 mcg PO DAILY Doxycycline [Vibramycin] Med 04/04/19 20:00 Active 100 mg PO BID Furosemide [Lasix] Med 04/05/19 14:00 Active 40 mg IV 0600,1400 Insulin Glarg,Human.Rec.Analog [LantUS Solostar] Med 04/04/19 20:00 Active 5 units SUBCUT BEDTIME Levothyroxine [Synthroid] Med 04/05/19 07:00 Active 50 mcg PO ACBREAKFAST PARoxetine [Paxil] Med 04/05/19 08:00 Active 20 mg PO DAILY Phytonadione [Vitamin K] Med 04/05/19 08:00 Active 100 mcg PO DAILY Simvastatin [Zocor] Med 04/04/19 20:00 Active 5 mg PO BEDTIME Sodium Chloride 0.9% [Saline Flush] Med 04/04/19 16:03 Active 10 ml FLUSH ASDIRECTED PRN Warfarin [Coumadin] Med 04/06/19 20:00 Active 2.5 mg PO [id number]@2000 Warfarin [Coumadin] Med 04/05/19 20:00 Ordered 5 mg PO SuTuThSa@1999 cefTRIAXone [Rocephin] Med 04/04/19 19:00 Active 1 gm IVPUSH Q24H Blood Culture x2 Reflex Set [OM.PC] Stat Ot 04/04/19 16:03 Ordered Peripheral IV Insertion Adult [OM.PC] Stat Ot 04/04/19 16:03 Ordered Resuscitation Status Routine Resus Stat 04/04/19 18:22 Ordered Medication Orders Acetaminophen (Tylenol) 650 mg PO Q6H PRN PRN Reason: Fever Greater Than 101 Last Admin: 04/05/19 10:01 Dose: 650 mg Albuterol/Ipratropium (Duoneb 3.0-0.5 Mg/3 Ml) 3 ml NEB Q6HRRT [facility] Last Admin: 04/05/19 06:09 Dose: Not Given Admin: 04/05/19 05:36 Dose: 3 ml Admin: 04/05/19 01:18 Dose: 3 ml Admin: 04/04/19 19:45 Dose: 3 ml Carvedilol (Coreg) 25 mg PO BIDM [facility] Last Admin: 04/05/19 07:55 Dose: 25 mg Ceftriaxone Sodium (Rocephin) 1 gm IVPUSH Q24H [facility] Last Admin: 04/04/19 19:13 Dose: Digoxin (Lanoxin) 250 mcg PO DAILY [facility] Last Admin: 04/05/19 07:56 Dose: 250 mcg Doxycycline Hyclate (Vibramycin) 100 mg PO BID [facility] Last Admin: 04/05/19 07:55 Dose: 100 mg Admin: 04/04/19 19:53 Dose: 100 mg Furosemide (Lasix) 40 mg IV 0600,1400 [facility] Insulin Glargine (Lantus Solostar) 5 units SUBCUT BEDTIME [facility] Last Admin: 04/04/19 19:51 Dose: 5 units Levothyroxine Sodium (Synthroid) 50 mcg PO ACBREAKFAST [facility] Last Admin: 04/05/19 06:09 Dose: Not Given Admin: 04/05/19 05:38 Dose: 50 mcg Paroxetine HCl (Paxil) 20 mg PO DAILY [facility] Last Admin: 04/05/19 07:55 Dose: 20 mg Phytonadione (Vitamin K) 100 mcg PO DAILY [facility] Last Admin: 04/05/19 07:55 Dose: 100 mcg Simvastatin (Zocor) 5 mg PO BEDTIME [facility] Last Admin: 04/04/19 19:50 Dose: 5 mg Sodium Chloride (Saline Flush) 10 ml FLUSH ASDIRECTED PRN PRN Reason: Keep Vein Open Warfarin Sodium (Coumadin) 2.5 mg PO [id number]@1999 [facility] Warfarin Sodium (Coumadin) 5 mg PO SuTuThSa@1999 [facility]
--- NOTE | 2019-04-05 13:03 | CR ---
[id number] RAD/RAD Chest PA or AP 1V EXAM: RAD Chest PA or AP 1V INDICATION: SHORTNESS OF BREATH. COMPARISON: Yesterday. DISCUSSION: Cardiomediastinal silhouette is unchanged from yesterday. No infiltrate, effusion, pneumothorax, or edema. IMPRESSION: No acute findings or significant change from yesterday. Elder De Leon MD 04/05/19 0180 Thank you for allowing us to participate in the care of your patient.
--- NOTE | 2019-04-05 13:18 | PCM.DCSUM1 ---
Discharge Summary - Hospital Course Free Text/Narrative:: Discharge summary Mr. Briscoe he was admitted on 8 with fever of 102, hypoxia and weakness and congestive heart failure. He was treated with Rocephin 1 g IV every 24 and doxycycline 100 mg twice a day for presumed pneumonia and Lasix 20 mg IV twice a day. She was placed on the monitor as he has a history of atrial fibrillation his troponin was mildly elevated although it should be noted that his creatinine is also elevated. Patient has a history of neurogenic bladder and normal he self catheters himself without any difficulty. On the afternoon of transfer, patient spiked to 103.1 EKG, became more short of breath and weaker so that he could not self catheter. Patient was not coughing with sputum induction produced purulent looking sputum. Patient was reexamined his lung examination continued to be nonspecific; patient has no pain over his pacemaker site or over his back where he has a spinal stimulator. Abdomen was benign and urine analysis was unremarkable. White count continued to be stable at 5000 and his platelets were decreased at 88,000. Repeat chest x-ray should continue to show heart failure possibly more consolidation at the right base. Because of his spiking through antibiotics, increasing weakness and lack of respiratory therapy support . Patient was advised that he would do better with transfer to a facility where he could receive vigorous pulmonary toilet. Patient agreed to be transferred to Dr. Ron, hospitalist at [facility] agreed to accept him in transfer. He will go down to [facility] the ALS ambulance with vancomycin running. At the time of transfer his temperature is 103.1, pulse 86 O2 sat 91% on 3 L of O2, blood pressure was 105/88 compared to with a blood pressure 147/78 morning. Respiratory rate 21. Other abnormalities noted were platelet count of 88,000, dig level of 2.17 which is elevated and orders were given to hold dig, INR of 1.7 and he was given warfarin 7.5 mg already today with orders to resume his usual dose of 2.5 mg Saturday and Saturday and 5 mg Saturday and Saturday in the a.m. Patient has received Lasix 40 mg IV twice a day started today,1 gram Rocephin IV every 24, doxycycline 100 twice a day and is in process of receiving vancomycin now; please see med list for his other medications Patient is code level I Diagnosis: Stroke: No - Discharge Data Discharge Date: 04/05/19 Discharge Disposition: DC/Tfer to Other 70 Condition: Fair - Referral to Home Health Primary Care Physician: Alexsandra Schrader DO - Patient Summary/Data Consults: Consultations 04/04/19 18:39 Consult to Physical Therapy [PT Evaluation and Treatment] [CONS] Routine - Discharge Plan *PRESCRIPTION DRUG MONITORING PROGRAM REVIEWED*: Not Applicable *COPY OF PRESCRIPTION DRUG MONITORING REPORT IN PATIENT MARTY: Not Applicable Home Medications: Home Meds Carvedilol [Coreg] 25 mg PO BID 07/29/13 [History] Digoxin 0.25 mg PO DAILY 07/29/13 [History] Levothyroxine [Synthroid] 50 mcg PO DAILY 07/29/13 [History] Scotts-3 Fatty Acids [Scotts-3] 1,000 mg PO BID 07/29/13 [History] PARoxetine [Paxil] 20 mg PO DAILY 07/29/13 [History] Simvastatin [Zocor] 5 mg PO BEDTIME 07/29/13 [History] Fluticasone Propionate [Flonase] 2 sprays NASBOTH BID 06/05/18 [History] Melatonin 6 mg PO BEDTIME 06/05/18 [History] Insulin Glarg,Human.Rec.Analog [Lantus Solostar] 5 units SUBCUT BEDTIME #1 pen 06/17/18 [Rx] Acetaminophen [Tylenol] 650 mg PO Q6H PRN 07/10/18 [History] Sennosides/Docusate Sodium [Senna Plus Tablet] 1 tab PO BID 07/10/18 [History] Albuterol/Ipratropium [Combivent Respimat] 1 puff IH Q4H PRN 04/04/19 [History] Albuterol/Ipratropium [DuoNeb 3.0-0.5 MG/3 ML] 3 ml NEB Q4H PRN 04/04/19 [ History] Cefadroxil [Duricef] 500 mg PO BID 04/04/19 [History] Furosemide [Lasix] 20 mg PO ASDIRECTED 04/04/19 [History] Ketoconazole [Nizoral 2% Shampoo] 5 ml TOP ASDIRECTED 04/04/19 [History] Phytonadione [Vitamin K] 100 mcg PO DAILY 04/04/19 [History] Warfarin [Coumadin] 2.5 mg PO MOWEFR 04/04/19 [History] Warfarin [Coumadin] 5 mg PO SUTUTHSA 04/04/19 [History] Patient Handouts: Heart Failure, [id number] Forms: ED Department Discharge, Interfacility Transfer EMTALA Referrals: Alexsandra Schrader, [Primary Care Provider] - - Discharge Summary/Plan Comment DC Time >30 min.: Yes (1.5 hours) Discharge Summary/Plan Comment: as above - Patient Data Vitals - Most Recent: Last Vital Signs Temp 103 F H 04/05/19 10:31 Pulse 86 04/05/19 10:00 Resp 22 H 04/05/19 10:00 BP 146/86 H 04/05/19 10:00 Pulse Ox 96 04/05/19 10:00 Weight - Most Recent: 203 lb I&O - Last 24 hours: Intake & Output 04/04/19 04/05/19 04/05/19 22:59 06:59 14:59 Intake Total 300 Output Total 1200 Balance -900 Lab Results - Last 24 hrs: Laboratory Results - last 24 hr 04/04/19 04/04/19 04/04/19 Range/Units 16:28 16:28 16:28 WBC 5.1 (4.0-10.0) x10^3/uL RBC 3.83 L (4.5-6.0) x10^6/uL Hgb 11.8 L D (14.0-18.0) g/dL Hct 37.1 L (40.0-52.0) % MCV 96.9 H (78.0-93.0) fL MCH 30.8 (26.0-32.0) pg MCHC 31.8 L (32.0-36.0) g/dL RDW Coeff of Mart 14.4 (10.0-15.0) % Plt Count 82 L D (130-400) x10^3/uL Neut % (Auto) 49.5 L (50.0-80.0) % Lymph % (Auto) 17.6 L (25.0-50.0) % [place] % (Auto) 30.5 H (2.0-11.0) % Eos % (Auto) 1.2 (0.0-4.0) % Baso % (Auto) 1.2 (0.2-1.2) % PT (10.0-12.8) SEC INR (2.0-3.5) Sodium 138 (69-191) mmol/L Potassium 4.4 (1.5-9.9) mmol/L Chloride 101 (54-184) mmol/L Carbon Dioxide 28 (21-32) mmol/L Anion Gap 13.4 (10-20) mmol/L BUN 22 H (7-18) mg/dL Creatinine 1.9 H (0.70-1.30) mg/dL Est Cr Clr Drug Dosing 28.45 mL/min Estimated GFR (MDRD) 34 Glucose 134 H (74-106) mg/dL Lactic Acid 1.1 (0.4-2.0) mmol/L Calcium 8.4 L (8.5-10.1) mg/dL Corrected Calcium 8.96 (8.5-10.1) mg/dL Magnesium (1.8-2.4) mg/dL Total Bilirubin 1.0 (0.2-1.0) mg/dL AST 21 (15-37) U/L ALT 17 (16-63) U/L Alkaline Phosphatase 82 (46-116) U/L Troponin I (<=0.056) ng/mL NT-Pro-B Natriuret Pep 4423 H (<=450) pg/mL Total Protein 7.5 (6.4-8.2) g/dL Albumin 3.3 L (3.4-5.0) g/dL Globulin 4.2 Albumin/Globulin Ratio 0.79 TSH, Ultra Sensitive (0.358-3.74) uIU/mL Urine Color (YELLOW) Urine Appearance (CLEAR) Urine pH (5.0-8.0) Ur Specific [place] Urine Protein (NEGATIVE) mg/dL Urine Glucose (UA) (NEGATIVE) mg/dL Urine Ketones (NEGATIVE) mg/dL Urine Occult Blood (NEGATIVE) Urine Nitrite (NEGATIVE) Urine Bilirubin (NEGATIVE) Urine Urobilinogen (0.2) EU/dL Ur Leukocyte Esterase (NEGATIVE) Urine RBC (NOT SEEN) /HPF Urine WBC (NOT SEEN) /HPF Ur Squamous Epith Cells (NEGATIVE) /HPF Urine Bacteria (NEGATIVE) /HPF Urine Mucus (NEGATIVE) /LPF Digoxin (0.90-2.00) ng/mL 04/04/19 04/04/19 04/05/19 Range/Units 16:28 16:28 08:12 WBC (4.0-10.0) x10^3/uL RBC (4.5-6.0) x10^6/uL Hgb (14.0-18.0) g/dL Hct (40.0-52.0) % MCV (78.0-93.0) fL MCH (26.0-32.0) pg MCHC (32.0-36.0) g/dL RDW Coeff of Mart (10.0-15.0) % Plt Count (130-400) x10^3/uL Neut % (Auto) (50.0-80.0) % Lymph % (Auto) (25.0-50.0) % [place] % (Auto) (2.0-11.0) % Eos % (Auto) (0.0-4.0) % Baso % (Auto) (0.2-1.2) % PT 21.4 H (10.0-12.8) SEC INR 1.9 L (2.0-3.5) Sodium 140 (69-191) mmol/L Potassium 4.2 (1.5-9.9) mmol/L Chloride 100 (54-184) mmol/L Carbon Dioxide 30 (21-32) mmol/L Anion Gap 14.2 (10-20) mmol/L BUN 25 H (7-18) mg/dL Creatinine 2.1 H (0.70-1.30) mg/dL Est Cr Clr Drug Dosing 24.40 mL/min Estimated GFR (MDRD) 31 Glucose 157 H (74-106) mg/dL Lactic Acid (0.4-2.0) mmol/L Calcium 8.6 (8.5-10.1) mg/dL Corrected Calcium (8.5-10.1) mg/dL Magnesium 1.9 (1.8-2.4) mg/dL Total Bilirubin (0.2-1.0) mg/dL AST (15-37) U/L ALT (16-63) U/L Alkaline Phosphatase (46-116) U/L Troponin I 0.059 H* (<=0.056) ng/mL NT-Pro-B Natriuret Pep (<=450) pg/mL Total Protein (6.4-8.2) g/dL Albumin (3.4-5.0) g/dL Globulin Albumin/Globulin Ratio TSH, Ultra Sensitive 1.750 (0.358-3.74) uIU/mL Urine Color (YELLOW) Urine Appearance (CLEAR) Urine pH (5.0-8.0) Ur Specific [place] Urine Protein (NEGATIVE) mg/dL Urine Glucose (UA) (NEGATIVE) mg/dL Urine Ketones (NEGATIVE) mg/dL Urine Occult Blood (NEGATIVE) Urine Nitrite (NEGATIVE) Urine Bilirubin (NEGATIVE) Urine Urobilinogen (0.2) EU/dL Ur Leukocyte Esterase (NEGATIVE) Urine RBC (NOT SEEN) /HPF Urine WBC (NOT SEEN) /HPF Ur Squamous Epith Cells (NEGATIVE) /HPF Urine Bacteria (NEGATIVE) /HPF Urine Mucus (NEGATIVE) /LPF Digoxin (0.90-2.00) ng/mL 04/05/19 04/05/19 04/05/19 Range/Units 08:12 08:12 08:12 WBC (4.0-10.0) x10^3/uL RBC (4.5-6.0) x10^6/uL Hgb (14.0-18.0) g/dL Hct (40.0-52.0) % MCV (78.0-93.0) fL MCH (26.0-32.0) pg MCHC (32.0-36.0) g/dL RDW Coeff of Mart (10.0-15.0) % Plt Count (130-400) x10^3/uL Neut % (Auto) (50.0-80.0) % Lymph % (Auto) (25.0-50.0) % [place] % (Auto) (2.0-11.0) % Eos % (Auto) (0.0-4.0) % Baso % (Auto) (0.2-1.2) % PT 19.7 H (10.0-12.8) SEC INR 1.7 L (2.0-3.5) Sodium (69-191) mmol/L Potassium (1.5-9.9) mmol/L Chloride (54-184) mmol/L Carbon Dioxide (21-32) mmol/L Anion Gap (10-20) mmol/L BUN (7-18) mg/dL Creatinine (0.70-1.30) mg/dL Est Cr Clr Drug Dosing mL/min Estimated GFR (MDRD) Glucose (74-106) mg/dL Lactic Acid (0.4-2.0) mmol/L Calcium (8.5-10.1) mg/dL Corrected Calcium (8.5-10.1) mg/dL Magnesium (1.8-2.4) mg/dL Total Bilirubin (0.2-1.0) mg/dL AST (15-37) U/L ALT (16-63) U/L Alkaline Phosphatase (46-116) U/L Troponin I 0.042 (<=0.056) ng/mL NT-Pro-B Natriuret Pep (<=450) pg/mL Total Protein (6.4-8.2) g/dL Albumin (3.4-5.0) g/dL Globulin Albumin/Globulin Ratio TSH, Ultra Sensitive (0.358-3.74) uIU/mL Urine Color (YELLOW) Urine Appearance (CLEAR) Urine pH (5.0-8.0) Ur Specific [place] Urine Protein (NEGATIVE) mg/dL Urine Glucose (UA) (NEGATIVE) mg/dL Urine Ketones (NEGATIVE) mg/dL Urine Occult Blood (NEGATIVE) Urine Nitrite (NEGATIVE) Urine Bilirubin (NEGATIVE) Urine Urobilinogen (0.2) EU/dL Ur Leukocyte Esterase (NEGATIVE) Urine RBC (NOT SEEN) /HPF Urine WBC (NOT SEEN) /HPF Ur Squamous Epith Cells (NEGATIVE) /HPF Urine Bacteria (NEGATIVE) /HPF Urine Mucus (NEGATIVE) /LPF Digoxin 2.17 H* (0.90-2.00) ng/mL 04/05/19 04/05/19 Range/Units 08:12 11:33 WBC 5.7 (4.0-10.0) x10^3/uL RBC 4.08 L (4.5-6.0) x10^6/uL Hgb 12.7 L (14.0-18.0) g/dL Hct 40.1 (40.0-52.0) % MCV 98.3 H (78.0-93.0) fL MCH 31.1 (26.0-32.0) pg MCHC 31.7 L (32.0-36.0) g/dL RDW Coeff of Mart 14.9 (10.0-15.0) % Plt Count 88 L (130-400) x10^3/uL Neut % (Auto) 38.1 L (50.0-80.0) % Lymph % (Auto) 17.3 L (25.0-50.0) % [place] % (Auto) 42.9 H (2.0-11.0) % Eos % (Auto) 1.2 (0.0-4.0) % Baso % (Auto) 0.5 (0.2-1.2) % PT (10.0-12.8) SEC INR (2.0-3.5) Sodium (69-191) mmol/L Potassium (1.5-9.9) mmol/L Chloride (54-184) mmol/L Carbon Dioxide (21-32) mmol/L Anion Gap (10-20) mmol/L BUN (7-18) mg/dL Creatinine (0.70-1.30) mg/dL Est Cr Clr Drug Dosing mL/min Estimated GFR (MDRD) Glucose (74-106) mg/dL Lactic Acid (0.4-2.0) mmol/L Calcium (8.5-10.1) mg/dL Corrected Calcium (8.5-10.1) mg/dL Magnesium (1.8-2.4) mg/dL Total Bilirubin (0.2-1.0) mg/dL AST (15-37) U/L ALT (16-63) U/L Alkaline Phosphatase (46-116) U/L Troponin I (<=0.056) ng/mL NT-Pro-B Natriuret Pep (<=450) pg/mL Total Protein (6.4-8.2) g/dL Albumin (3.4-5.0) g/dL Globulin Albumin/Globulin Ratio TSH, Ultra Sensitive (0.358-3.74) uIU/mL Urine Color Yellow (YELLOW) Urine Appearance Clear (CLEAR) Urine pH 5.5 (5.0-8.0) Ur Specific [place] 1.010 Urine Protein Trace H (NEGATIVE) mg/dL Urine Glucose (UA) Negative (NEGATIVE) mg/dL Urine Ketones Negative (NEGATIVE) mg/dL Urine Occult Blood Small H (NEGATIVE) Urine Nitrite Negative (NEGATIVE) Urine Bilirubin Negative (NEGATIVE) Urine Urobilinogen 0.2 (0.2) EU/dL Ur Leukocyte Esterase Negative (NEGATIVE) Urine RBC 0-5 (NOT SEEN) /HPF Urine WBC 0-5 (NOT SEEN) /HPF Ur Squamous Epith Cells Not seen (NEGATIVE) /HPF Urine Bacteria Not seen (NEGATIVE) /HPF Urine Mucus Not seen (NEGATIVE) /LPF Digoxin (0.90-2.00) ng/mL CAREY Results - Last 24 hrs: Microbiology 04/04/19 16:28 Anaerobic Blood Culture - Final Blood - Venous Med Orders - Current: Current Medications Acetaminophen (Tylenol) 650 mg PO Q6H PRN PRN Reason: Fever Greater Than 101 Last Admin: 04/05/19 10:01 Dose: 650 mg Albuterol/Ipratropium (Duoneb 3.0-0.5 Mg/3 Ml) 3 ml NEB Q6HRRT [facility] Last Admin: 04/05/19 12:16 Dose: 3 ml Carvedilol (Coreg) 25 mg PO BIDM [facility] Last Admin: 04/05/19 07:55 Dose: 25 mg Ceftriaxone Sodium (Rocephin) 1 gm IVPUSH Q24H [facility] Last Admin: 04/04/19 19:13 Dose: Not Given Digoxin (Lanoxin) 250 mcg PO DAILY [facility] Last Admin: 04/05/19 07:56 Dose: 250 mcg Doxycycline Hyclate (Vibramycin) 100 mg PO BID [facility] Last Admin: 04/05/19 07:55 Dose: 100 mg Furosemide (Lasix) 40 mg IV 0600,1400 [facility] Vancomycin HCl 1.5 gm/ Sodium (Chloride) 250 mls @ 165 mls/hr IV ONETIME ONE Stop: 04/05/19 14:30 Last Admin: 04/05/19 12:52 Dose: 165 mls/hr Vancomycin HCl 1 gm/ Sodium (Chloride) 250 mls @ 250 mls/hr IV Q24H [facility] Insulin Glargine (Lantus Solostar) 5 units SUBCUT BEDTIME [facility] Last Admin: 04/04/19 19:51 Dose: 5 units Levothyroxine Sodium (Synthroid) 50 mcg PO ACBREAKFAST [facility] Last Admin: 04/05/19 06:09 Dose: Not Given Paroxetine HCl (Paxil) 20 mg PO DAILY [facility] Last Admin: 04/05/19 07:55 Dose: 20 mg Phytonadione (Vitamin K) 100 mcg PO DAILY [facility] Last Admin: 04/05/19 07:55 Dose: 100 mcg Simvastatin (Zocor) 5 mg PO BEDTIME [facility] Last Admin: 04/04/19 19:50 Dose: 5 mg Sodium Chloride (Saline Flush) 10 ml FLUSH ASDIRECTED PRN PRN Reason: Keep Vein Open Vancomycin HCl (Pharmacy To Dose - Vancomycin) 1 dose .XX ASDIRECTED [facility] Warfarin Sodium (Coumadin) 2.5 mg PO [email or web address] [facility] Warfarin Sodium (Coumadin) 5 mg PO [email or web address] [facility] Discontinued Medications Acetaminophen (Tylenol) 1,000 mg PO NOW ONE Stop: 04/04/19 16:41 Last Admin: 04/04/19 16:50 Dose: Not Given Acetaminophen (Tylenol Extra Strength) 1,000 mg PO ONETIME ONE Stop: 04/04/19 16:47 Last Admin: 04/04/19 16:50 Dose: 1,000 mg Albuterol/Ipratropium (Duoneb 3.0-0.5 Mg/3 Ml) 3 ml NEB ONETIME ONE Stop: 04/04/19 16:07 Last Admin: 04/04/19 16:14 Dose: 3 ml Ceftriaxone Sodium (Rocephin) 1 gm IVPUSH ONETIME ONE Stop: 04/04/19 16:04 Last Admin: 04/04/19 16:28 Dose: 1 gm Furosemide (Lasix) 40 mg IV ONETIME ONE Stop: 04/04/19 17:16 Last Admin: 04/04/19 17:31 Dose: 40 mg Furosemide (Lasix) 20 mg IV 0600,1400 [facility] Last Admin: 04/05/19 05:36 Dose: 20 mg Sodium Chloride (Normal Saline) 1,000 mls @ 150 mls/hr IV ONETIME ONE Stop: 04/04/19 22:48 Last Admin: 04/04/19 16:32 Dose: 150 mls/hr Warfarin Sodium (Coumadin) 7.5 mg PO ONETIME ONE Stop: 04/05/19 09:56 Last Admin: 04/05/19 12:10 Dose: Not Given Warfarin Sodium (Coumadin) 7.5 mg PO ONETIME ONE Stop: 04/05/19 12:16 Last Admin: 04/05/19 12:16 Dose: 7.5 mg
--- NOTE | 2019-04-05 13:29 | PCM.SN ---
- Free Text/Narrative Note: add: Bp 125/50- manually rr 32 on 3l/m O2 at 1:30 Pm
[2019-04-05] MEDS ORDERED: Furosemide 40 MG/4 ML VIAL IV SCH (14:00)
[2019-04-05] MEDS ORDERED: Warfarin 5 MG Tab PO SCH (20:00)
[2019-04-06] MEDS ORDERED: Warfarin 2.5 MG Tab PO SCH (20:00)
== END 2019-04-05 13:40 | disposition other institution (70) | DRG 291 ==
LOC: VM.ED 15:50 → VM.MS 17:17
PROVIDERS: ADMIT Internal Medicine; ATTEND Internal Medicine
DX: I11.0 Hypertensive heart disease with heart failure (principal); I50.33 Acute on chronic diastolic (congestive) heart failure; I13.0 Hypertensive heart and chronic kidney disease with heart failure and stage 1 through stage 4 chronic kidney disease, or unspecified chronic kidney disease; J18.9 Pneumonia, unspecified organism; E87.70 Fluid overload, unspecified; I50.31 Acute diastolic (congestive) heart failure; R53.1 Weakness; J96.01 Acute respiratory failure with hypoxia; E11.40 Type 2 diabetes mellitus with diabetic neuropathy, unspecified; J96.02 Acute respiratory failure with hypercapnia; I48.91 Unspecified atrial fibrillation; E78.00 Pure hypercholesterolemia, unspecified; N31.9 Neuromuscular dysfunction of bladder, unspecified; K21.9 Gastro-esophageal reflux disease without esophagitis; I25.10 Atherosclerotic heart disease of native coronary artery without angina pectoris; N18.9 Chronic kidney disease, unspecified; E78.5 Hyperlipidemia, unspecified; E03.9 Hypothyroidism, unspecified; G47.30 Sleep apnea, unspecified; I27.20 Pulmonary hypertension, unspecified; F32.9 Major depressive disorder, single episode, unspecified; M51.36 Other intervertebral disc degeneration, lumbar region; Z68.33 Body mass index [BMI] 33.0-33.9, adult; J44.9 Chronic obstructive pulmonary disease, unspecified; R79.89 Other specified abnormal findings of blood chemistry; D64.9 Anemia, unspecified; E11.22 Type 2 diabetes mellitus with diabetic chronic kidney disease; E66.9 Obesity, unspecified; G89.29 Other chronic pain; M54.9 Dorsalgia, unspecified; R25.1 Tremor, unspecified; Z96.651 Presence of right artificial knee joint; Z95.0 Presence of cardiac pacemaker; Z79.899 Other long term (current) drug therapy; Z79.01 Long term (current) use of anticoagulants; Z79.4 Long term (current) use of insulin; Z87.891 Personal history of nicotine dependence; I25.2 Old myocardial infarction
CPT/HCPCS: 36415; 71045; 80053; 83605; 83880; 84484; 85025; 85610; 87040 ×2; 93005; 94640; 94760; 96361; 96374; 99284; 99285; A9270; J0696; J7030; 70450; 80048; 80162; 81001; 82962; 83735; 84443; 87070; 87205; 96375; J1815-GY; J1940; J3370; J7050; J7620-GY

== ENCOUNTER 2019-04-10 11:42 | Inpatient (IN) | payer MEDICARE, OTHER ==
[2019-04-11] MEDS ORDERED: Albuterol/Ipratropium 4 GM Inhalation Spray INH PRN (14:39)
[2019-04-11] MEDS ORDERED: Albuterol/Ipratropium 3.0-0.5 MG/3 ML Neb Soln NEB PRN (14:39)
[2019-04-11] MEDS ORDERED: Acetaminophen 325 MG Tab PO PRN (14:39)
--- NOTE | 2019-04-11 15:33 | PCM.HP.2 ---
H&P History of Present Illness - General Date of Service: 04/11/19 Admit Problem/Dx: Admission Diagnosis/Problem Admission Diagnosis/Problem Pneumonia Source of Information: Patient History Limitations: Reports: No Limitations - History of Present Illness Initial Comments - Free Text/Narative: Mr. Hernandez is an 79 yo male with PMH of CAD, CHF, HTN, DM, A-fib, hyperlipidemia , MICHELLE, GERD, CKD, neurogenic bladder requiring regular self catheterizations, OA , depression, and hypothyroidism who is admitted to [facility] for strengthening after admission to [facility] for sepsis secondary to pneumonia. He was hospitalized at [facility] 04/05-04/11 for the pneumonia as well as for acute on chronic kidney injury , NSTEMI, and CHF exacerbation. He completed his antibiotic course while hospitalized in [place]. He was requiring supplemental oxygen but it is suspected that this is secondary to not having his CPAP available. He did have elevated troponins which was evaluated with a stress test that showed mild changes; cardiology was consulted and did not recommend any intervention, rather recommended medical management. He was already on most secondary prevention measures but aspirin was added for completeness. His acute kidney injury resolved with IV fluids. He was given an IV dose of lasix yesterday with significant fluid output. He had refused removal of his indwelling urinary catheter prior to dismissal due to not having his catheter supplies yet. Upon arrival to the floor, he states that he is feeling well. He feels he is still slightly more short of breath than usual but notes that this is improving. He feels his cough is back to his usual baseline cough, which is only in the mornings and is mildly productive. He denies any fever or chills. His appetite has been good. He has struggled with constipation during this admission but notes that this is finally improving as well. He denies any nausea or vomiting. He does have a catheter in place as he had refused to have this removed until his home catheter supplies were available. His brother was able to bring these supplies as well as his CPAP machine. - Related Data Allergies/Adverse Reactions: Allergies Allergy/AdvReac Type Severity Reaction Status Date / Time No Known Allergies Allergy Verified 04/04/19 17:02 Home Medications: Home Meds Carvedilol [Coreg] 25 mg PO BID 07/29/13 [History] Digoxin 0.25 mg PO DAILY 07/29/13 [History] Levothyroxine [Synthroid] 50 mcg PO DAILY 07/29/13 [History] [place]-3 Fatty Acids [[place]-3] 1,000 mg PO BID 07/29/13 [History] PARoxetine [Paxil] 20 mg PO DAILY 07/29/13 [History] Simvastatin [Zocor] 5 mg PO BEDTIME 07/29/13 [History] Fluticasone Propionate [Flonase] 2 sprays NASBOTH BID 06/05/18 [History] Melatonin 6 mg PO BEDTIME 06/05/18 [History] Insulin Glarg,Human.Rec.Analog [Lantus Solostar] 5 units SUBCUT BEDTIME #1 pen 06/17/18 [Rx] Acetaminophen [Tylenol] 650 mg PO Q6H PRN 07/10/18 [History] Sennosides/Docusate Sodium [Senna Plus Tablet] 2 tab PO BID 07/10/18 [History] Albuterol/Ipratropium [Combivent Respimat] 2 puff IH Q4H PRN 04/04/19 [History] Albuterol/Ipratropium [DuoNeb 3.0-0.5 MG/3 ML] 3 ml NEB Q4H PRN 04/04/19 [ History] Cefadroxil [Duricef] 500 mg PO BID 04/04/19 [History] Furosemide [Lasix] 20 mg PO ASDIRECTED 04/04/19 [History] Ketoconazole [Nizoral 2% Shampoo] 5 ml TOP ASDIRECTED 04/04/19 [History] Phytonadione [Vitamin K] 100 mcg PO DAILY 04/04/19 [History] Warfarin [Coumadin] 2.5 mg PO MOWEFR 04/04/19 [History] Warfarin [Coumadin] 5 mg PO SUTUTHSA 04/04/19 [History] Past Medical History HEENT History: Reports: Allergic Rhinitis Cardiovascular History: Reports: Afib, CAD, Heart Failure, High Cholesterol, Hypertension, [place] Respiratory History: Reports: Pneumonia, Recurrent, Sleep Apnea, SOB Gastrointestinal History: Reports: GERD, Other (See Below) Other Gastrointestinal History: inguinal hernia Genitourinary History: Reports: Diabetic Nephropathy, Neurogenic Bladder, Other (See Below) Other Genitourinary History: Urethral stricture. chronic kidney disease Musculoskeletal History: Reports: Back Pain, Chronic, Osteoarthritis Other Musculoskeletal History: DJD. Lumbar degenerative disc disease. HX of polio. Right knee pain States R knee buckled Psychiatric History: Reports: Depression Endocrine/Metabolic History: Reports: Diabetes, Type II, Hypothyroidism, Obesity /BMI 30+ Hematologic History: Reports: Blood Transfusion(s) Oncologic (Cancer) History: Reports: None - Past Surgical History Cardiovascular Surgical History: Reports: Pacer Musculoskeletal Surgical History: Reports: Knee Replacement Social & Family History - Family History Cardiac: Reports: Hypertension, RI Respiratory: Reports: COPD Endocrine/Metabolic: Reports: Diabetes, type II - Tobacco Use Smoking Status *Q: Former Smoker Used Tobacco, but Quit: No Second Hand Smoke Exposure: No - Caffeine Use Caffeine Use: Reports: Coffee - Alcohol Use Alcohol Use History: Yes Alcohol Use in Last Twelve Months: No - Recreational Drug Use Recreational Drug Use: No - Living Situation & Occupation Living situation: Reports: , Alone 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) H&P Review of Systems - Review of Systems: Review Of Systems: See Below General: Reports: No Symptoms HEENT: Reports: No Symptoms Pulmonary: Reports: Shortness of Breath, Cough Cardiovascular: Reports: No Symptoms Gastrointestinal: Reports: No Symptoms Genitourinary: Reports: No Symptoms Musculoskeletal: Reports: No Symptoms Skin: Reports: No Symptoms Psychiatric: Reports: No Symptoms Neurological: Reports: No Symptoms Hematologic/Lymphatic: Reports: No Symptoms Exam - Exam Exam: See Below - Vital Signs Vital Signs: Last Vital Signs Temp 36.3 C 04/11/19 14:20 Pulse 79 04/11/19 14:20 Resp 18 04/11/19 14:20 BP 139/71 04/11/19 14:20 Pulse Ox 89 L 04/11/19 14:20 Weight: 88.451 kg - Exam General: Alert, Oriented, Cooperative HEENT: Conjunctiva Clear, Mucosa Moist & [place], Pupils Equal, Pupils Reactive Neck: Supple, Trachea Midline. No: Lymphadenopathy, Thyromegaly Lungs: Clear to Auscultation, Normal Respiratory Effort Cardiovascular: Regular Rate, Regular Rhythm, Normal S1, Normal S2 GI/Abdominal Exam: Normal Bowel Sounds, Soft, Non-Tender, No Organomegaly, No Distention, No Mass Extremities: Non-Tender, No Pedal Edema, Normal Capillary Refill Peripheral Pulses: 2+: Radial (L), Radial (R) Skin: Warm, Dry, Intact *Q Meaningful Use (ADM) - VTE *Q VTE Anticoagulation Contraindications: Med/TX Not Indicated/Need - Problem List (1) Physical deconditioning SNOMED Code(s): 28027004058176 ICD Code: R53.81 - OTHER MALAISE Status: Acute Current Visit: No (2) CAP (community acquired pneumonia) SNOMED Code(s): 246758398 ICD Code: J18.9 - PNEUMONIA, UNSPECIFIED ORGANISM Status: Acute Current Visit: Yes Qualifiers: Laterality: unspecified laterality Qualified Code(s): J18.9 - Pneumonia, unspecified organism (3) CAD (coronary artery disease) SNOMED Code(s): 68805939 ICD Code: I25.10 - ATHSCL HEART DISEASE OF [place] CORONARY ARTERY W/O ANG PCTRS Status: Chronic Priority: High Current Visit: No Qualifiers: Coronary Disease-Associated Artery/Lesion type: [place] artery [place] vs. transplanted heart: [place] heart Associated angina: with unspecified angina Qualified Code(s): I25.119 - Atherosclerotic heart disease of [place] coronary artery with unspecified angina pectoris (4) NSTEMI (non-ST elevated myocardial infarction) SNOMED Code(s): 44780719 ICD Code: I21.4 - NON-ST ELEVATION (NSTEMI) MYOCARDIAL INFARCTION Status: Acute Priority: High Current Visit: No (5) Atrial fibrillation SNOMED Code(s): 27684912 ICD Code: I48.91 - UNSPECIFIED ATRIAL FIBRILLATION Status: Chronic Priority: Medium Current Visit: No Qualifiers: Atrial fibrillation type: paroxysmal Qualified Code(s): I48.0 - Paroxysmal atrial fibrillation (6) CHF (congestive heart failure) SNOMED Code(s): 65989568 ICD Code: I50.9 - HEART FAILURE, UNSPECIFIED Status: Chronic Priority: Medium Current Visit: No Qualifiers: Heart failure type: diastolic Heart failure chronicity: acute on chronic Qualified Code(s): I50.33 - Acute on chronic diastolic (congestive) heart failure (7) Hypertension SNOMED Code(s): 59605184 ICD Code: I10 - ESSENTIAL (PRIMARY) HYPERTENSION Status: Chronic Priority : Medium Current Visit: No Qualifiers: Hypertension type: essential hypertension Qualified Code(s): I10 - Essential (primary) hypertension (8) CKD (chronic kidney disease) SNOMED Code(s): 948825115 ICD Code: N18.9 - CHRONIC KIDNEY DISEASE, UNSPECIFIED Status: Chronic Current Visit: No Qualifiers: Chronic kidney disease stage: stage 3 (moderate) Qualified Code(s): N18.3 - Chronic kidney disease, stage 3 (moderate) (9) DM2 (diabetes mellitus, type 2) SNOMED Code(s): 87188163 ICD Code: E11.9 - TYPE 2 DIABETES MELLITUS WITHOUT COMPLICATIONS Status: Chronic Current Visit: No Qualifiers: Diabetes mellitus senior living insulin use: with buttermaker use Diabetes mellitus complication status: without complication Qualified Code(s): E11.9 - Type 2 diabetes mellitus without complications; Z79.4 - snf (current) use of insulin (10) Neurogenic bladder SNOMED Code(s): 733784409 ICD Code: N31.9 - NEUROMUSCULAR DYSFUNCTION OF BLADDER, UNSPECIFIED Status : Chronic Priority: Medium Current Visit: No (11) Sleep apnea SNOMED Code(s): 34915445 ICD Code: G47.30 - SLEEP APNEA, UNSPECIFIED Status: Chronic Priority: Medium Current Visit: No Qualifiers: Sleep apnea type: obstructive Qualified Code(s): G47.33 - Obstructive sleep apnea (adult) (pediatric) (12) Degenerative disc disease, lumbar SNOMED Code(s): 32991246 ICD Code: M51.36 - OTHER INTERVERTEBRAL DISC DEGENERATION, LUMBAR REGION Status: Chronic Priority: Medium Current Visit: No Problem Details: 12 September 2017. Please see plans related to other problems. (13) Constipation SNOMED Code(s): 42881703 ICD Code: K59.00 - CONSTIPATION, UNSPECIFIED Status: Chronic Current Visit: Yes Qualifiers: Constipation type: unspecified constipation type Qualified Code(s): K59.00 - Constipation, unspecified (14) Hypothyroidism SNOMED Code(s): 89848356 ICD Code: E03.9 - HYPOTHYROIDISM, UNSPECIFIED Status: Chronic Current Visit: Yes Qualifiers: Hypothyroidism type: acquired Qualified Code(s): E03.9 - Hypothyroidism, unspecified (15) Depression SNOMED Code(s): 26106899 ICD Code: F32.9 - MAJOR DEPRESSIVE DISORDER, SINGLE EPISODE, UNSPECIFIED Status: Chronic Current Visit: Yes Qualifiers: Depression Type: major depressive disorder Active/Remission status: in full remission Problem List Initiated/Reviewed/Updated: Yes Orders Last 24hrs: Active Orders 24 hr Category Date Time Status Admission Status [Patient Status] [ADT] Routine ADT 04/11/19 13:26 Active Influenza Vaccine Charge [RC] .DISCHARGE Care 04/11/19 13:57 Active Notify Provider Vital Signs [RC] ASDIRECTED Care 04/11/19 14:21 Active Oxygen Therapy [RC] 08,20 Care 04/11/19 14:20 Active Up With Assistance [RC] , Care 04/11/19 14:20 Active VTE/DVT Education [RC] PER UNIT ROUTINE Care 04/11/19 14:20 Active Vital Signs [RC] ,18 Care 04/11/19 14:20 Active OT Evaluation and Treatment [CONS] Routine Cons 04/11/19 14:20 Active PT Evaluation and Treatment [CONS] Routine Cons 04/11/19 14:20 Active 2 Gram Sodium Diet [DIET] Diet 04/11/19 Dinner Active Acetaminophen [Tylenol] Med 04/11/19 14:39 Active 650 mg PO Q6H PRN Albuterol/Ipratropium [DuoNeb 3.0-0.5 MG/3 ML] Med 04/11/19 14:39 Active 3 ml NEB Q4H PRN Aspirin Med 04/12/19 08:00 Active 81 mg PO WITHBREAKFAST Carvedilol [Coreg] Med 04/11/19 18:00 Active 25 mg PO BIDMEALS Digoxin [Lanoxin] Med 04/12/19 08:00 Active 250 mcg PO DAILY Docusate Sodium/Sennosides [Senna Plus] Med 04/11/19 20:00 Active 2 tab PO BID Fluticasone Propionate [Flonase] Med 04/11/19 20:00 Active 0 gm NASBOTH BID Furosemide [Lasix] Med 04/13/19 08:00 Active 20 mg PO MoWeFr@0800 Insulin Glarg,Human.Rec.Analog [LantUS Solostar] Med 04/11/19 20:00 Active 5 units SUBCUT BEDTIME Insulin Lispro [HumaLOG] Med 04/11/19 18:00 Active See Protocol SUBCUT TIDMEALS Ketoconazole [Nizoral 2% Shampoo] Med 04/11/19 14:45 Pending 5 ml TOP ASDIRECTED Lactulose [Chronulac] Med 04/11/19 20:00 Active 10 gm PO BID Levothyroxine [Synthroid] Med 04/12/19 07:00 Active 50 mcg PO ACBRK Melatonin Med 04/11/19 20:00 Active 6 mg PO BEDTIME PARoxetine [Paxil] Med 04/12/19 08:00 Active 20 mg PO DAILY Phytonadione [Vitamin K] Med 04/12/19 08:00 Active 100 mcg PO DAILY Polyethylene Glycol 3350 [MiraLAX] Med 04/12/19 08:00 Active 17 gm PO DAILY Potassium Chloride [Klor-Con 10] Med 04/13/19 08:00 Active 10 meq PO MoWeFr@0800 Simvastatin [Zocor] Med 04/11/19 20:00 Active 5 mg PO BEDTIME Warfarin [Coumadin] Med 04/13/19 14:39 Pending 2.5 mg PO MOWEFR Warfarin [Coumadin] Med 04/11/19 14:45 Pending 5 mg PO SUTUTHSA Anticoagulation Contraindications VTE [AST] Per Unit Oth 04/11/19 14:20 Ordered Routine Resuscitation Status Routine Resus Stat 04/11/19 14:20 Ordered Medication Orders Acetaminophen (Tylenol) 650 mg PO Q6H PRN PRN Reason: Fever Albuterol/Ipratropium (Duoneb 3.0-0.5 Mg/3 Ml) 3 ml NEB Q4H PRN PRN Reason: Cough Aspirin (Aspirin) 81 mg PO WITHBREAKFAST CHEN Carvedilol (Coreg) 25 mg PO BIDMEALS CHEN Digoxin (Lanoxin) 250 mcg PO DAILY CHEN Fluticasone Propionate (Flonase) 0 gm NASBOTH BID CHEN Furosemide (Lasix) 20 mg PO MoWeFr@0800 CHEN Insulin Glargine (Lantus Solostar) 5 units SUBCUT BEDTIME CHEN Insulin Human Lispro (Humalog) 0 unit SUBCUT TIDMEALS CHEN; Protocol Lactulose (Chronulac) 10 gm PO BID CHEN Levothyroxine Sodium (Synthroid) 50 mcg PO ACBRK CHEN Melatonin (Melatonin) 6 mg PO BEDTIME CHEN Non-Formulary Medication (Ketoconazole [Nizoral 2% Shampoo]) 5 ml TOP ASDIRECTED CHEN Paroxetine HCl (Paxil) 20 mg PO DAILY CHEN Phytonadione (Vitamin K) 100 mcg PO DAILY CHEN Polyethylene Glycol (Miralax) 17 gm PO DAILY [facility] Potassium Chloride (Klor-Con 10) 10 meq PO MoWeFr@0800 [facility] Senna/Docusate Sodium (Senna Plus) 2 tab PO BID CHEN Simvastatin (Zocor) 5 mg PO BEDTIME CHEN Warfarin Sodium (Coumadin) 2.5 mg PO MOWEFR [facility] Warfarin Sodium (Coumadin) 5 mg PO SUTUTHSA [facility] Assessment/Plan Comment:: 79 yo male admitted to swing bed for strengthening after an acute hospital stay in [place]. #1 Physical Deconditioning - PT and OT consults ordered. - It is anticipated that he is not far from his baseline and will have a short swing bed stay. #2 CAP - He completed his antibiotics while hospitalized in [place]. - Will monitor for any recurrence of symptoms. #3 CAD #4 NSTEMI - Currently asymptomatic. - Continue current medications. #5 A-fib #6 CHF #7 Hypertension #8 CKD - All at baseline. - Will monitor weights daily. - Continue current medications. - Will plan for lab end of next week, sooner if he will be discharged before then. INR to be done at the same time. #9 Type II DM - Continue current medications. - Will check glucose QID. #10 Neurogenic Bladder - Indwelling barrett catheter to be removed today. - Then his home I/O catheterization schedule can be resumed since his supplies have been brought to the hospital by his brother. #11 MICHELLE - Resume CPAP now that this is available. #12 Lumbar spine DDD #13 Constipation #14 Hypothyroidism #15 Depression - Continue current medications. Patient will be admitted to swing bed - anticipate dismissal home in the next 1- 2 weeks at the discretion of PT. Continue current medications as per hospital discharge list. Patient wishes to be full code - discussed on admission. He does not require VTE prophylaxis as he is on warfarin.
[2019-04-11] MEDS: Carvedilol 25 MG Tab PO SCH (18:05)
[2019-04-11] MEDS: Insulin Lispro 100 Unit/ML 3 ML KwikPen SUBCUT SCH (18:59)
[2019-04-11] MEDS: Melatonin 3 MG Tab PO SCH (20:45)
[2019-04-11] MEDS: Simvastatin 10 MG Tab PO SCH (20:46)
[2019-04-11] MEDS: Insulin Glargine,Human Rec. Analog 100 Units/ML 3 ML Pen SUBCUT SCH (20:47)
[2019-04-11] MEDS: Lactulose Soln 10 GM/15 ML 15 ML UD Cup PO SCH (20:48)
[2019-04-11] MEDS: Fluticasone Propionate Nasal Spray 16 GM Bottle NASBOTH SCH (20:50)
[2019-04-12] MEDS: Levothyroxine 50 MCG Tab PO SCH (06:36)
[2019-04-12] MEDS: Polyethylene Glycol 3350 Powder 17 GM Packet PO SCH (09:06)
[2019-04-12] MEDS: Fluticasone Propionate Nasal Spray 16 GM Bottle NASBOTH SCH ×2 (09:06→20:05)
[2019-04-12] MEDS: Lactulose Soln 10 GM/15 ML 15 ML UD Cup PO SCH ×2 (09:06→20:05)
[2019-04-12] MEDS: Carvedilol 25 MG Tab PO SCH ×2 (09:07→17:56)
[2019-04-12] MEDS: Digoxin 250 MCG Tab PO SCH (09:10)
[2019-04-12] MEDS: PARoxetine 20 MG Tab PO SCH (09:10)
[2019-04-12] MEDS: Insulin Lispro 100 Unit/ML 3 ML KwikPen SUBCUT SCH ×3 (09:10→17:54)
[2019-04-12] MEDS: Aspirin 81 MG Tab.Chew PO SCH (09:10)
[2019-04-12] MEDS: Phytonadione 100 MCG Tab PO SCH (09:16)
[2019-04-12] MEDS: Melatonin 3 MG Tab PO SCH (19:41)
[2019-04-12] MEDS: Warfarin 5 MG Tab PO SCH (19:42)
[2019-04-12] MEDS: Simvastatin 10 MG Tab PO SCH (19:42)
[2019-04-12] MEDS ORDERED: Warfarin 5 MG Tab PO ONE (20:00)
[2019-04-12] MEDS: Insulin Glargine,Human Rec. Analog 100 Units/ML 3 ML Pen SUBCUT SCH (21:00)
[2019-04-13] MEDS: Levothyroxine 50 MCG Tab PO SCH (06:19)
[2019-04-13] MEDS: Potassium Chloride 10 MEQ Tab.ER PO SCH (08:09)
[2019-04-13] MEDS: Aspirin 81 MG Tab.Chew PO SCH (08:10)
[2019-04-13] MEDS: Carvedilol 25 MG Tab PO SCH ×2 (08:10→17:13)
[2019-04-13] MEDS: Furosemide 20 MG Tab PO SCH (08:11)
[2019-04-13] MEDS: Digoxin 250 MCG Tab PO SCH (08:11)
[2019-04-13] MEDS: PARoxetine 20 MG Tab PO SCH (08:11)
[2019-04-13] MEDS: Lactulose Soln 10 GM/15 ML 15 ML UD Cup PO SCH ×2 (08:12→19:55)
[2019-04-13] MEDS: Phytonadione 100 MCG Tab PO SCH (08:12)
[2019-04-13] MEDS: Polyethylene Glycol 3350 Powder 17 GM Packet PO SCH (08:12)
[2019-04-13] MEDS: Fluticasone Propionate Nasal Spray 16 GM Bottle NASBOTH SCH ×2 (08:15→19:56)
[2019-04-13] MEDS: Insulin Lispro 100 Unit/ML 3 ML KwikPen SUBCUT SCH ×3 (08:21→17:26)
[2019-04-13] MEDS: Insulin Glargine,Human Rec. Analog 100 Units/ML 3 ML Pen SUBCUT SCH (19:55)
[2019-04-13] MEDS: Simvastatin 10 MG Tab PO SCH (19:55)
[2019-04-13] MEDS: Melatonin 3 MG Tab PO SCH (19:56)
[2019-04-13] MEDS ORDERED: Warfarin 2.5 MG Tab PO SCH (20:00)
[2019-04-14] MEDS: Levothyroxine 50 MCG Tab PO SCH (06:14)
[2019-04-14 07:23] LABS: ANION GAP 11.8 mmol/L (10-20)
[2019-04-14] MEDS: Phytonadione 100 MCG Tab PO SCH (08:27)
[2019-04-14] MEDS: Digoxin 250 MCG Tab PO SCH (08:27)
[2019-04-14] MEDS: Carvedilol 25 MG Tab PO SCH ×2 (08:27→17:38)
[2019-04-14] MEDS: PARoxetine 20 MG Tab PO SCH (08:27)
[2019-04-14] MEDS: Aspirin 81 MG Tab.Chew PO SCH (08:27)
[2019-04-14] MEDS: Fluticasone Propionate Nasal Spray 16 GM Bottle NASBOTH SCH ×2 (08:28→19:33)
[2019-04-14] MEDS: Insulin Lispro 100 Unit/ML 3 ML KwikPen SUBCUT SCH ×3 (08:29→17:40)
[2019-04-14] MEDS: Lactulose Soln 10 GM/15 ML 15 ML UD Cup PO SCH ×2 (08:30→19:33)
[2019-04-14] MEDS: Polyethylene Glycol 3350 Powder 17 GM Packet PO SCH (08:30)
--- NOTE | 2019-04-14 10:59 | PN ---
Progress Note for BRYAN WATT Date: 04/14/2019 Room #: VM.202 HISTORY OF PRESENT ILLNESS: This is an 79-year-old admitted to swing bed on 04/11/2019 after an acute stay for pneumonia and a [id number] [place]. The patient does admit that when he walked further with PT, he had a little bit more chest pain. He is on medical management for his KS. He has not been using any nebs here, they are p.r.n. He states he still has a little bit of cough and shortness of breath, but feels he is about at his baseline. He did complete his antibiotics while in [place], but now he states he feels like he might be getting a UTI. He does do self-catheterizations, but had a Mckeon catheter in, in [place] until he came here. Now he just feels a little lower abdominal pain and a little low back pain which is consistent with previous symptoms for his UTIs. Otherwise, he is doing quite well. He has already been discontinued from occupational therapy. He is actually hoping to go home as soon as tomorrow. Blood sugars have been excellent. OBJECTIVE: Vital Signs: His weight is 89.4 kg, temperature 98.3, pulse 70, blood pressure 137/74, respiratory rate 20, O2 of 94% on room air. General: He is in no acute distress. Heart: Regularly irregular. Lungs: Lung sounds are slightly decreased to auscultation, but no crackles. No wheezing. Abdomen: Nontender. Extremities: Warm, dry. No edema. Mental Status: He is alert. He is orientated x3. LABORATORY DATA: Lab work done today shows INR therapeutic at 2, white count normal at 5, hemoglobin 10.6, platelets 172. Sodium 145, potassium 3.8, chloride 105, bicarb 32, BUN 22, creatinine 1.5, glucose 100. ASSESSMENT: 1. Community-acquired pneumonia treated with full course of antibiotics in [place]. 2. Concern for urinary tract infection with neurogenic bladder and need for self-catheterization. We will get a UA today. 3. Physical deconditioning. He is working with PT. We will touch base with them and see if he is stable for discharge tomorrow. 4. Coronary artery disease with recent non-ST elevation myocardial infarction, still with some stable angina. We will see how he does with the neb treatment before to see if his lungs are contributing some. 5. Atrial fibrillation. He is on Coumadin. INR is therapeutic. 6. Chronic heart failure. He is on 3 times a week Lasix. His EF was 65% on 03/26/2019, so diastolic heart failure. We will continue with the same. If he shows any signs of an exacerbation, we will increase the dose. 7. Chronic kidney disease. His creatinine is at his baseline around 1.5. 8. Essential tremor. He is interested in some medications for that. I told him we will look into it more. 9. Obstructive sleep apnea. He is using his home CPAP. 10.Type 2 diabetes. He is on Lantus 5 units daily. Blood sugars are controlled. PLAN: The patient will continue swing bed cares until he is stable for discharge home. He is also on levothyroxine for his hypothyroidism. He will follow up in the clinic with me in 1 to 2 weeks for post discharge followup. BAOA: 04/14/2019 09:37:18 MODL: 04/14/2019 10:49:24 /[id number]
[2019-04-14] MEDS: Albuterol/Ipratropium 3.0-0.5 MG/3 ML Neb Soln NEB SCH (11:09)
[2019-04-14] MEDS: Ciprofloxacin 250 MG Tab PO SCH ×2 (15:19→19:32)
[2019-04-14] MEDS: Simvastatin 10 MG Tab PO SCH (19:32)
[2019-04-14] MEDS: Warfarin 5 MG Tab PO SCH (19:32)
[2019-04-14] MEDS: Insulin Glargine,Human Rec. Analog 100 Units/ML 3 ML Pen SUBCUT SCH (19:33)
[2019-04-14] MEDS: Melatonin 3 MG Tab PO SCH (19:44)
[2019-04-15] MEDS: Levothyroxine 50 MCG Tab PO SCH (06:44)
[2019-04-15] MEDS: Fluticasone Propionate Nasal Spray 16 GM Bottle NASBOTH SCH (08:15)
[2019-04-15] MEDS: Potassium Chloride 10 MEQ Tab.ER PO SCH (08:15)
[2019-04-15] MEDS: Digoxin 250 MCG Tab PO SCH (08:16)
[2019-04-15] MEDS: PARoxetine 20 MG Tab PO SCH (08:16)
[2019-04-15] MEDS: Aspirin 81 MG Tab.Chew PO SCH (08:16)
[2019-04-15] MEDS: Furosemide 20 MG Tab PO SCH (08:16)
[2019-04-15] MEDS: Ciprofloxacin 250 MG Tab PO SCH (08:16)
[2019-04-15] MEDS: Phytonadione 100 MCG Tab PO SCH (08:16)
[2019-04-15] MEDS: Carvedilol 25 MG Tab PO SCH (08:16)
[2019-04-15] MEDS: Insulin Lispro 100 Unit/ML 3 ML KwikPen SUBCUT SCH ×2 (08:17→12:35)
[2019-04-15] MEDS: Polyethylene Glycol 3350 Powder 17 GM Packet PO SCH (08:18)
[2019-04-15] MEDS: Lactulose Soln 10 GM/15 ML 15 ML UD Cup PO SCH (08:18)
[2019-04-15] MEDS: Albuterol/Ipratropium 3.0-0.5 MG/3 ML Neb Soln NEB SCH (10:48)
--- NOTE | 2019-04-15 17:23 | PCM.DCSUM1 ---
Discharge Summary - Hospital Course Free Text/Narrative:: Patient admitted for further therapies after an acute stay in [place] for pneumonia and CHF he had some lower abdominal pain and concern for UTi but clt came back negative. he had a catheter in [place] but is now back to straight cathing due to his neurogenic bladder. We discussed a short course for 3 days of cipro. he had a little chest discomfort this AM with laying flat in bed but none with walking and the neb did help his breathing. He is on lasix only 3 x a week was on it even up to 2 x a day prior. Cr 1.5 here EF is 65 % stress testing showed Mildly abnormal adenosine Cardiolite myocardial perfusion images. A small area of inferoapical infarct needs to be considered. There are no areas of major ischemia on this study. Normal left ventricular ejection fraction. Cardiology has seen and he was recommended for medical management. He refuses home health. He wanted to try a med for his tremor in his hands with using it. We talked about Carbidopa being for parkinson's and he hasn't been diagnosed with that does have a hx of polio it could just be an essential tremor at this point I recommend we let him recover from this illness before adding new medications and he is agreeable to this plan. - Discharge Data Discharge Date: 04/15/19 Discharge Disposition: Home, Self-Care 01 Condition: Good - Referral to Home Health Primary Care Physician: Alexsandra Schrader DO - Patient Summary/Data Consults: Consultations 04/11/19 14:20 OT Evaluation and Treatment [CONS] Routine PT Evaluation and Treatment [CONS] Routine - Patient Instructions Diet: Heart Healthy Diet, Diabetic Diet Fluid Restriction: 2000 mL Activity: As Tolerated Driving: May Drive Today Showering/Bathing: May Shower Notify Provider of: Fever, Increased Pain, Nausea and/or Vomiting Other/Special Instructions: Recheck in the clinic with an INR on April 23 3: 30. bmp at your follow up visit. Cipro 250 twice daily for another 4 doses for the bladded. Lets hold off on any tremor medications until you are recovered fully. Take your lasix 3 x a week if any increase in swelling or shortness of breath let me know. Use your nebulizer if needed for shortness of breath - Discharge Plan Prescriptions/Med Rec: Ciprofloxacin [Ciprofloxacin HCl] 250 mg PO BID #4 tablet Furosemide [Lasix] 20 mg PO MoWeFr@0800 #20 tablet Potassium Chloride [Klor-Con 10] 10 meq PO MoWeFr@0800 #20 tab.er Home Medications: Home Meds Carvedilol [Coreg] 25 mg PO BID 07/29/13 [History] Digoxin 0.25 mg PO DAILY 07/29/13 [History] Levothyroxine [Synthroid] 50 mcg PO DAILY 07/29/13 [History] PARoxetine [Paxil] 20 mg PO DAILY 07/29/13 [History] Simvastatin [Zocor] 5 mg PO BEDTIME 07/29/13 [History] Fluticasone Propionate [Flonase] 2 sprays NASBOTH BID 06/05/18 [History] Melatonin 6 mg PO BEDTIME 06/05/18 [History] Insulin Glarg,Human.Rec.Analog [Lantus Solostar] 5 units SUBCUT BEDTIME #1 pen 06/17/18 [Rx] Acetaminophen [Tylenol] 650 mg PO Q6H PRN 07/10/18 [History] Sennosides/Docusate Sodium [Senna Plus Tablet] 2 tab PO BID 07/10/18 [History] Albuterol/Ipratropium [Combivent Respimat] 2 puff IH Q4H PRN 04/04/19 [History] Albuterol/Ipratropium [DuoNeb 3.0-0.5 MG/3 ML] 3 ml NEB Q4H PRN 04/04/19 [ History] Ketoconazole [Nizoral 2% Shampoo] 5 ml TOP ASDIRECTED 04/04/19 [History] Phytonadione [Vitamin K] 100 mcg PO DAILY 04/04/19 [History] Warfarin [Coumadin] 2.5 mg PO MOWEFR 04/04/19 [History] Warfarin [Coumadin] 5 mg PO SUTUTHSA 04/04/19 [History] Aspirin 81 mg PO WITHBREAKFAST tab.chew 04/15/19 [Rx] Ciprofloxacin [Ciprofloxacin HCl] 250 mg PO BID #4 tablet 04/15/19 [Rx] Furosemide [Lasix] 20 mg PO MoWeFr@0800 #20 tablet 04/15/19 [Rx] Polyethylene Glycol 3350 [MiraLAX] 17 gm PO DAILY packet 04/15/19 [Rx] Potassium Chloride [Klor-Con 10] 10 meq PO MoWeFr@0800 #20 tab.er 04/15/19 [Rx] Oxygen Therapy Mode: CPAP Referrals: Alexsandra Schrader DO [Primary Care Provider] - 04/23/19 3:30 pm (You have a folllow up appt. with Dr. Phoenix Schrader on April 23, 2019 at 3:30---[facility]) - Discharge Summary/Plan Comment DC Time >30 min.: Yes Discharge Summary/Plan Comment: Follow up in the clinic he is already due for a diabetes follow up and other lab work probably will need his lasix increased if he continues to have orthopnea. - General Info Date of Service: 04/15/19 Functional Status: Reports: Pain Controlled - Review of Systems General: Reports: No Symptoms HEENT: Reports: No Symptoms Pulmonary: Reports: Shortness of Breath Cardiovascular: Reports: Chest Pain Gastrointestinal: Reports: No Symptoms Genitourinary: Reports: Retention. Denies: Dysuria Skin: Reports: No Symptoms Neurological: Reports: Tremors Psychiatric: Reports: No Symptoms - Patient Data Vitals - Most Recent: Last Vital Signs Temp 97.8 F 04/15/19 06:00 Pulse 70 04/15/19 08:16 Resp 20 04/15/19 06:00 BP 155/70 H 04/15/19 08:16 Pulse Ox 96 04/15/19 06:00 Weight - Most Recent: 80.15 kg I&O - Last 24 hours: Intake & Output 04/15/19 04/15/19 04/15/19 06:59 14:59 22:59 Intake Total 40 240 Output Total 200 Balance -160 240 Lab Results - Last 24 hrs: Laboratory Results - last 24 hr 04/14/19 04/14/19 04/14/19 Range/Units 11:19 17:20 19:24 POC Glucose 137 H 112 H 196 H (74-106) mg/dL 04/15/19 04/15/19 Range/Units 06:40 11:18 POC Glucose 115 H 111 H (74-106) mg/dL CAREY Results - Last 24 hrs: Microbiology 04/14/19 09:04 Urine Culture - Preliminary Urine, Catheterized Streptococcus Species Med Orders - Current: Current Medications Discontinued Medications Acetaminophen (Tylenol) 650 mg PO Q6H PRN PRN Reason: Fever Albuterol/Ipratropium (Combivent Respimat) gm INH Q4H PRN PRN Reason: Shortness of Breath Albuterol/Ipratropium (Duoneb 3.0-0.5 Mg/3 Ml) 3 ml NEB Q4H PRN PRN Reason: Cough Albuterol/Ipratropium (Duoneb 3.0-0.5 Mg/3 Ml) 3 ml NEB DAILY@1100 [facility] Last Admin: 04/15/19 10:48 Dose: Not Given Aspirin (Aspirin) 81 mg PO WITHBREAKFAST [facility] Last Admin: 04/15/19 08:16 Dose: 81 mg Carvedilol (Coreg) 25 mg PO BIDMEALS [facility] Last Admin: 04/15/19 08:16 Dose: 25 mg Ciprofloxacin (Ciprofloxacin Hcl) 250 mg PO BID [facility] Last Admin: 04/15/19 08:16 Dose: 250 mg Digoxin (Lanoxin) 250 mcg PO DAILY [facility] Last Admin: 04/15/19 08:16 Dose: 250 mcg Fluticasone Propionate (Flonase) 0 gm NASBOTH BID [facility] Last Admin: 04/15/19 08:15 Dose: 2 spray Furosemide (Lasix) 20 mg PO MoWeFr@0800 [facility] Last Admin: 04/15/19 08:16 Dose: 20 mg Influenza Virus Vaccine (Pharmacy To Dose - Influenza Vaccine) 1 each IM ONETIME ONE Stop: 04/11/19 13:57 Influenza Virus Vaccine (Fluzone High-Dose 2019-20 Syringe) 180 mcg IM .ONCE ONE Stop: 04/11/19 17:31 Last Admin: 04/11/19 18:01 Dose: 180 mcg Insulin Glargine (Lantus Solostar) 5 units SUBCUT BEDTIME [facility] Last Admin: 04/14/19 19:33 Dose: 5 units Insulin Human Lispro (Humalog) 0 unit SUBCUT TIDMEALS [facility]; Protocol Last Admin: 04/15/19 12:35 Dose: Not Given Lactulose (Chronulac) 10 gm PO BID [facility] Last Admin: 04/15/19 08:18 Dose: Not Given Levothyroxine Sodium (Synthroid) 50 mcg PO ACBRK [facility] Last Admin: 04/15/19 06:44 Dose: 50 mcg Melatonin (Melatonin) 6 mg PO BEDTIME [facility] Last Admin: 04/14/19 19:44 Dose: Not Given Ketoconazole [ (Nizoral 2% Shampoo]) 0 ml TOP MoWeFr@08 [facility] Last Admin: 04/15/19 09:34 Dose: Not Given Paroxetine HCl (Paxil) 20 mg PO DAILY [facility] Last Admin: 04/15/19 08:16 Dose: 20 mg Phytonadione (Vitamin K) 100 mcg PO DAILY [facility] Last Admin: 04/15/19 08:16 Dose: 100 mcg Polyethylene Glycol (Miralax) 17 gm PO DAILY [facility] Last Admin: 04/15/19 08:18 Dose: Not Given Potassium Chloride (Klor-Con 10) 10 meq PO MoWeFr@0800 [facility] Last Admin: 04/15/19 08:15 Dose: 10 meq Senna/Docusate Sodium (Senna Plus) 2 tab PO BID [facility] Last Admin: 04/15/19 08:15 Dose: 2 tab Simvastatin (Zocor) 5 mg PO BEDTIME [facility] Last Admin: 04/14/19 19:32 Dose: 5 mg Warfarin Sodium (Coumadin) 2.5 mg PO MoWeFr@1999 [facility] Last Admin: 04/13/19 19:56 Dose: 2.5 mg Warfarin Sodium (Coumadin) 5 mg PO SuTuThSa@1999 [facility] Last Admin: 04/14/19 19:32 Dose: 5 mg Warfarin Sodium (Coumadin) 5 mg PO ONETIME ONE Stop: 04/12/19 20:01 - Exam General: Reports: Alert, Oriented Lungs: Reports: Clear to Auscultation, Normal Respiratory Effort Cardiovascular: Reports: Irregular Rhythm GI/Abdominal Exam: Soft Extremities: Normal Inspection, No Pedal Edema Neurological: Reports: Normal Speech Psy/Mental Status: Reports: Alert, Normal Affect, Normal Mood *Q Meaningful Use (DIS) - VTE *Q VTE Anticoagulation Contraindications: Med/TX Not Indicated/Need
== END 2019-04-15 12:30 | disposition home or self-care (01) | DRG 280 ==
LOC: VM.MS 04-11 13:02
PROVIDERS: ADMIT Family Medicine; ATTEND Internal Medicine
DX: I21.4 Non-ST elevation (NSTEMI) myocardial infarction (principal); J18.9 Pneumonia, unspecified organism; I50.33 Acute on chronic diastolic (congestive) heart failure; T83.518A Infection and inflammatory reaction due to other urinary catheter, initial encounter; I13.0 Hypertensive heart and chronic kidney disease with heart failure and stage 1 through stage 4 chronic kidney disease, or unspecified chronic kidney disease; I25.10 Atherosclerotic heart disease of native coronary artery without angina pectoris; E11.22 Type 2 diabetes mellitus with diabetic chronic kidney disease; E78.5 Hyperlipidemia, unspecified; I48.91 Unspecified atrial fibrillation; N30.90 Cystitis, unspecified without hematuria; N18.3 Chronic kidney disease, stage 3 (moderate); B95.5 Unspecified streptococcus as the cause of diseases classified elsewhere; G47.33 Obstructive sleep apnea (adult) (pediatric); R25.1 Tremor, unspecified; K21.9 Gastro-esophageal reflux disease without esophagitis; N31.9 Neuromuscular dysfunction of bladder, unspecified; M19.90 Unspecified osteoarthritis, unspecified site; F32.9 Major depressive disorder, single episode, unspecified; E03.9 Hypothyroidism, unspecified; G89.29 Other chronic pain; M54.9 Dorsalgia, unspecified; M51.36 Other intervertebral disc degeneration, lumbar region; Z68.29 Body mass index [BMI] 29.0-29.9, adult; E66.9 Obesity, unspecified; Z96.651 Presence of right artificial knee joint; I25.119 Atherosclerotic heart disease of native coronary artery with unspecified angina pectoris; K59.00 Constipation, unspecified; Z99.81 Dependence on supplemental oxygen; Z79.899 Other long term (current) drug therapy; Z79.4 Long term (current) use of insulin; Z79.01 Long term (current) use of anticoagulants; I25.2 Old myocardial infarction; Z87.01 Personal history of pneumonia (recurrent); Z95.0 Presence of cardiac pacemaker; Z87.891 Personal history of nicotine dependence; Z79.82 Long term (current) use of aspirin
CPT/HCPCS: 36415; 80048; 81001; 81003; 82962; 85025; 85610; 87086; 90662; 94640; 97161-GP; 97165-GO; 97530-GP; A9270-GY; G0008; J1815-GY; J7620-GY

== ENCOUNTER 2021-09-04 09:19 | Emergency (ER) | payer MEDICARE, OTHER ==
[2021-09-04 10:26] LABS: ANION GAP 11.2 mmol/L (5-15); CHLORIDE,CL 106 mmol/L (98-107); SODIUM,NA 141 mmol/L (136-145)
== END 2021-09-04 12:30 | disposition home or self-care (01) ==
LOC: VM.ED 09:19
DX: N39.0 Urinary tract infection, site not specified (principal); R29.6 Repeated falls; I48.91 Unspecified atrial fibrillation; I25.10 Atherosclerotic heart disease of native coronary artery without angina pectoris; I11.9 Hypertensive heart disease without heart failure; I50.9 Heart failure, unspecified; E78.00 Pure hypercholesterolemia, unspecified; I25.2 Old myocardial infarction; K21.9 Gastro-esophageal reflux disease without esophagitis; E11.40 Type 2 diabetes mellitus with diabetic neuropathy, unspecified; E03.9 Hypothyroidism, unspecified; E66.9 Obesity, unspecified; Z79.82 Long term (current) use of aspirin; Z79.01 Long term (current) use of anticoagulants; Z79.899 Other long term (current) drug therapy; Z88.8 Allergy status to other drugs, medicaments and biological substances; Z68.29 Body mass index [BMI] 29.0-29.9, adult
CPT/HCPCS: 36415; 51702; 80053; 81001; 82550; 83615; 83880; 84484; 85025; 85610; 86140; 87086; 87088; 87186; 93005; 99284; 99284-25